=== PATIENT | female | born 1970 | race Caucasian/White ===

== ENCOUNTER → 2019-08-16 | Outpatient (CLI) | payer SELFPAY | PROVIDERS: Family Provider Family Medicine; Visit Provider Nurse Practitioner Psychiatric/Mental Health | DX: F33.2 Major depressive disorder, recurrent severe without psychotic features (principal); F41.1 Generalized anxiety disorder; F17.200 Nicotine dependence, unspecified, uncomplicated; F10.20 Alcohol dependence, uncomplicated ==

== ENCOUNTER → 2019-09-25 11:14 | Outpatient (BNVA) | payer MEDICAID, SELFPAY | PROVIDERS: Family Provider Family Medicine; Visit Provider Nurse Practitioner | DX: F33.2 Major depressive disorder, recurrent severe without psychotic features (principal); F17.210 Nicotine dependence, cigarettes, uncomplicated | CPT/HCPCS: 99214 ==

== ENCOUNTER → 2019-09-27 15:17 | Outpatient (BNVA) | payer MEDICAID, SELFPAY | PROVIDERS: Family Provider Family Medicine; Referring Provider Nurse Practitioner Family; Visit Provider Obstetrics & Gynecology | DX: N39.46 Mixed incontinence (principal) | CPT/HCPCS: 87086 ==

== ENCOUNTER → 2019-10-26 13:13 | Outpatient (BNVA) | payer MEDICAID, SELFPAY | PROVIDERS: Family Provider Family Medicine; PCP Nurse Practitioner Family; Visit Provider Nurse Practitioner | DX: F33.2 Major depressive disorder, recurrent severe without psychotic features (principal) | CPT/HCPCS: 99213 ==

== ENCOUNTER 2019-11-13 11:50 | Observation (INO) | payer MEDICAID, SELFPAY ==
[2019-11-09 11:50] VITALS: BMI 40.3
--- NOTE | 2019-11-09 11:55 | ECG_ITS ---
Measurements Intervals [place] Rate: 108 P: 21 TN: 133 QRS: 26 QRSD: 78 T: 1 QT: 320 QTc: 429 SINUS TACHYCARDIA NONSPECIFIC T-WAVE ABNORMALITY ABNORMAL RHYTHM ECG No previous ECG available for comparison Electronically Signed On 11-09-2019 12:51:22 CDT by Christiana Fried M.D. [email or web address]
[2019-11-09 12:16] LABS: Basophils % 0.3 %; Eosinophils # 0.1 10^3/uL (0.0-0.8); Eosinophils % 0.5 %; Hematocrit 44.7 % (37.0-47.0); Hemoglobin 14.4 g/dL (11.5-15.3); Lymphocytes # 2.6 10^3/uL (0.8-4.8); Lymphocytes % 23.5 %; Mean Corpuscular HGB Conc 32.2 g/dL (30.0-36.0); Mean Corpuscular Hemoglobin 27.2 pg (28.0-34.0); Mean Corpuscular Volume 84.5 fL (81-99); Mean Platelet Volume 10.1 fL (7.4-10.4); Monocytes # 0.7 10^3/uL (0.2-0.9); Monocytes % 6.2 %; Neutrophils # 7.7 10^3/uL (1.8-7.7); Nucleated Red Blood Cells % 0 %; Platelet Count 326 10^3/cmm (130-400); Red Blood Count 5.29 10^6/uL (4.1-5.3); White Blood Count 11.1 10^3/uL (4.0-10.0)
[2019-11-09 12:39] LABS: Add Urine Microscopic? NO
[2019-11-09 12:44] LABS: Anion Gap 17.3 (5-19); Blood Urea Nitrogen 10 mg/dL (6-20); Calcium 10.1 mg/dL (8.5-10.5); Carbon Dioxide 26 mmol/L (22-29); Chloride 100 mmol/L (98-107); Glomerular Filtration Rate 105.4 mL/min (90-130); Glucose 153 mg/dL (65-115); Osmolality Calculated 287 mOsm/kg (285-295); Potassium 4.3 mmol/L (3.5-5.1); Sodium 139 mmol/L (136-145)
--- NOTE | 2019-11-09 12:46 | ANES.PREANE2 ---
Pre-Anesthetic Assessment Pre-Anesthetic Assessment: Height/Weight: Height 1.68 m Weight 113.398 kg Preop Diagnosis: Cystocele, Urinary incontinence Proposed Procedure: Operation Date: 11/13/19 09:25 Proposed Procedures p Anterior Repair Anterior [id number]/ R32/ N81.2(Not Applicable) - Dameon Avina MD s Single incision suburethral sling(Not Applicable) - Dameon Avina MD s Cystoscopy(Not Applicable) - Dameon Avina MD Familial anesthetic complications: none Social: Social History: Tobacco Exam: Pre-Anes Outpt Exam: alert, oriented x 3, clear to auscultation bilaterally and regular rate & rhythm Airway: Cervical ROM: WNL MP: 2 Dentition: False Pulmonary: Pulmonary: Sleep apnea (cpap) CV/HEM: CV/HEM: HTN : : None reported Hepatic: Hepatic: None reported GI: GI: GERD Metabolic: Metabolic: DM, Morbid obesity and Thyroid Musc/skel: Musc/skel: None reported Neuropsych: Neuropsych: None reported Anesthetic Plan: ASA status: 2 Anesthesia: General Risk of > 500 ml blood loss (7ml/kg in children): No PFSH Anesthesia PFSH: Medical History (Updated 11/09/19 @ 11:48 by Roula Clemons RN) Alcohol dependence, in remission Diabetes type 2, controlled Gastroesophageal reflux Hypertension Hypothyroidism (acquired) Major depressive disorder, recurrent severe without psychotic features Nicotine dependence, cigarettes, uncomplicated Obesity Surgical History History of cholecystectomy History of dilation and curettage Status post breast reduction (~2009) Social History Smoking and tobacco status: current every day smoker cigarettes Smoking risk assessment/counseling performed?: Yes Tobacco counseling given: counseling >3 minutes Alcohol intake: former Year of sobriety/quit date alcohol: 1 Substance/Drug Use: never Female Reproductive History: Date of last menstrual period: 08/21/19 Data Anesthesia CBC & Chem 7: 11/09/19 12:01 11/09/19 12:01 Other Labs: Laboratory Results - last 48 hr 11/09/19 11/09/19 12:01 12:01 WBC 11.1 H RBC 5.29 Hgb 14.4 Hct 44.7 MCV 84.5 MCH 27.2 L MCHC 32.2 RDW 15.0 Plt Count 326 MPV 10.1 Neut % (Auto) 69.0 Lymph % (Auto) 23.5 Esmeralda % (Auto) 6.2 Eos % (Auto) 0.5 Baso % (Auto) 0.3 Neut # (Auto) 7.7 Lymph # (Auto) 2.6 Esmeralda # (Auto) 0.7 Eos # (Auto) 0.1 Baso # (Auto) 0.0 Nucleated RBC % (auto) 0 Nucleated RBCs # 0.0 Sodium 139 Potassium 4.3 Chloride 100 Carbon Dioxide 26 Anion Gap 17.3 BUN 10 Creatinine 0.6 GFR Calculation 105.4 Glucose 153 H Calculated Osmolality 287 Calcium 10.1 Cardiac Studies: No Data to Display
[2019-11-09 12:47] LABS: Bilirubin Urine Neg (NEGATIVE); Blood Urine Neg (Negative); Glucose Urine UA 4+ (Normal); Ketones Urine Negative (Negative); Leukocyte Esterase Urine Negative (Negative); Nitrate Urine Negative (Negative); OR HCG Qualitative Urine Negative (Negative); Protein Urine Neg (Negative); Urine Appearance Clear (CLEAR); Urine Color Straw (Yellow); Urobilinogen Urine Norm (Negative)
[2019-11-13] VITALS (14 sets, daily range): BP systolic 101–167; BP diastolic 69–95; PULSE 76–118; RESP 13–20; TEMP 36.3–37.3; O2SAT 96–100
[2019-11-13 08:15] LABS: Glucose Point of Care 157 mg/dL (70-110)
[2019-11-13] MEDS: ketorolac 30 mg/mL INJ IVP ×2 (08:15→14:17)
[2019-11-13] MEDS: sodium chloride 0.9% 1,000 ML 30 ML IV (08:15)
[2019-11-13] MEDS: phenazopyridine 100 mg Tablet 200 MG PO ×3 (08:15→20:23)
[2019-11-13] MEDS: scopolamine 1.5 Patch 1 PATCH TRANSDERMA (08:36)
--- NOTE | 2019-11-13 10:11 | W.PM.OPSUD ---
Surgery/Procedure H&P Update DATE OF PROCEDURE: November 13, 2019 DATE H&P PERFORMED: 11/09/19 H&P UPDATE INFORMATION: I have reviewed H&P completed within last 30 days, I have examined patient prior to procedure, No changes to prior documentation and H&[place] is in [facility] [place] indicated PREOP DIAGNOSIS: Cystocele, Urinary incontinence PLANNED PROCEDURE: Operation Date: 11/13/19 09:25 Proposed Procedures p Anterior Repair Anterior [id number]/ R32/ N81.2(Not Applicable) - Dameon Avina MD s Single incision suburethral sling(Not Applicable) - Dameon Avina MD s Cystoscopy(Not Applicable) - Dameon Avina MD
--- NOTE | 2019-11-13 10:18 | P.ANESUD_ITS ---
Pre-Anesthetic Update Pre-Anesthetic Assessment: Date of Surgery/Procedure: 11/13/19 Preop Celeste gnosis: Cystocele, Urinary incontinence Proposed Procedure: Operation Date: 11/13/19 09:25 Proposed Procedures p Anterior Repair Anterior [id number]/ R32/ N81.2(Not Applicable) - Dameon Avina MD s Single incision suburethral sling(Not Applicable) - Dameon Avina MD s Cystoscopy(Not Applicable) - Dameon Avina MD Any changes to Pre-Anesthetic Assessment?: No Last Intake: Intake Last Liquid Date 11/12/19 Last Liquid Time 20:30 Last Solid Date 11/12/19 Last Solid Time 20:30 Labs Last 48hrs: Laboratory Results - last 48 hr 11/13/19 08:11 POC Glucose 157 Vitals: Temperature 97.3 F L 11/13/19 07:59 Temperature Source Temporal Artery S can 11/13/19 07:59 Pulse Rate 88 11/13/19 07:59 Respiratory Rate 18 11/13/19 07:59 Blood Pressure 151/91 11/13/19 07:59 Blood Pressure Marilee n 111 11/13/19 07:59 Pulse Oximetry 98 11/13/19 07:59 Oxygen Delivery Me thod 11/13/19 07:59 Exam: Pre-Anes Outpt Exam: alert, oriented x 3, clear to auscultation bi laterally and regular rate & rhythm Cardiac Studies: No Data to Display
[2019-11-13] MEDS: vasopressin 20 unit/mL INJ INJECTION (10:58)
--- NOTE | 2019-11-13 11:33 | P.OP_ITS ---
Operative Report Date of procedure: November 13, 2019 Pre-op Diagnosis: Cystocele, Urinary incontinence Post-op Diagnosis: Cystocele, Urinary incontinence Procedure Done: Anterior colporrhaphy, Solyx Single incision suburethral sling, Cystoscopy Specimens removed/disposition: None Surgeon: Dameon Avina Breakfast Manager: AMINA Campbell Anesthesia: General Estimated blood loss (mL): 50 IV fluids (mL): 800 Complications: None Brief History: Patient is a 49-year-old white female 6, para 3-1-2-4 with an LMP of 07/2019 who is status post tubal ligation. She presented to the office with complaints of leaking urine. She reported that she had been having leaking problems for >1-year which has been worsening. She leaks urine with changes in position even without the feeling of needing to urinate. She leaks urine with coughing, sneezing, laughing, etc. She also reported urinary urgency symptoms with leaking. On exam, she was found to have a second-degree cystocele at rest with a third-degree cystocele with Valsalva. She had minimal uterine prolapse. She had hypermobility of the urethra. Treatment for her incontinence was discussed. Discussed that one treatment would not typically fix all of the problems. Questions were answered. She wished to proceed with surgical repair for the stress component of her incontinence. Procedure: Patient was taken to the operating room were general anesthesia was obtained. She was prepped and draped in usual sterile fashion dorsal supine position with legs in David style stirrups. Sequential compression boots were placed prior to starting the case. Exam under anesthesia was performed. She was noted to have third-degree cystocele. Mota catheter was inserted. Anterior vaginal wall was injected with dilute Pitressin solution. A midline incision was made along the anterior vaginal wall. The edges were grasp with Allis clamps and skin was dissected from the vesicle vaginal fascia using a combination of sharp and blunt dissection. This was extended from the mid urethra to the reflection of the skin at the cervix and to the lateral aspects of the anterior vaginal wall. Areas bleeding were brought under control using electrocautery. Due to the degree of cystocele, a 2 layer reapproximation of the bladder was recommended. Using 2-0 Vicryl suture, stitches were placed approximately a third of the distance between the midline and lateral aspect of the anterior wall. These were carried across to the contralateral side at approximately the same level in position. Multiple stitches were placed along the anterior wall. These were then tied which reduced the cystocele. A second layer was placed using 2-0 Vicryl suture, stitches were placed laterally into the corners of the vesicovaginal fascia and brought across to the contralateral side picking up the lateral corner. Multiple stitches were placed along the anterior wall. Once all stitches were placed these were tied in the midline essentially eliminating the cystocele. A solyx single incision suburethral sling was then placed. The sling was placed through at the mid urethral level and passed through the periurethral fascia and passed behind the pubic symphysis. This was repeated on the contralateral side in a similar fashion. The sling was brought up until it rested against the urethra. Mota catheter was removed and cystoscopy was performed. No bladder masses, suture material, or sling material was noted within the bladder. Both ureters were noted to be effluxing urine well. Bladder was drained and Mota catheter reinserted. Excess vaginal mucosa was excised. The vaginal mucosa was closed using 3-0 Vicryl suture in a running locking fashion. The vagina was packed with 1 inch Nu Gauze. Patient tolerated procedure well. Sponge, needle, and instrument counts were correct. DRAINS: Mota catheter FINDINGS: Third-degree cystocele noted. Normal-appearing bladder. POSTOPERATIVE STATUS: The patient was transferred to the recovery room in satisfactory condition.
[2019-11-13] MEDS: dextrose 5%-lactated ringers 1,000 ML 125 ML IV (12:24)
[2019-11-13] MEDS: TRAMadol 50 mg Tablet PO ×2 (13:36→20:00)
[2019-11-13] MEDS: morphine 4 mg/mL SDV 1 mL IVP ×2 (14:17→22:17)
[2019-11-13 16:47] LABS: Glucose Point of Care 173 mg/dL (70-110)
[2019-11-13] MEDS: docusate sodium 100 mg Capsule PO (19:59)
[2019-11-13] MEDS: trazodone 100 mg Tablet PO (20:24)
[2019-11-13 21:21] LABS: Glucose Point of Care 147 mg/dL (70-110)
[2019-11-14 03:30] VITALS: BP 107/68; PULSE 78; RESP 16; TEMP 36.8
[2019-11-14 06:16] LABS: Hematocrit 38.1 % (37.0-47.0); Hemoglobin 11.8 g/dL (11.5-15.3); Mean Corpuscular Hemoglobin 27.2 pg (28.0-34.0); Mean Corpuscular Volume 87.8 fL (81-99); Mean Platelet Volume 11.3 fL (7.4-10.4); Platelet Count 247 10^3/cmm (130-400); Red Blood Count 4.34 10^6/uL (4.1-5.3); Red Cell Distribution Width 15.2 % (12.1-15.1); White Blood Count 8.1 10^3/uL (4.0-10.0)
[2019-11-14] MEDS: TRAMadol 50 mg Tablet PO ×2 (06:51→12:07)
[2019-11-14] MEDS: docusate sodium 100 mg Capsule PO (09:34)
[2019-11-14] MEDS: NON-FORMULARY MEDICATION (Dapagliflozin [Farxiga] 5 MG) 5 EACH PO (09:34)
[2019-11-14] MEDS: phenazopyridine 100 mg Tablet 200 MG PO (09:34)
[2019-11-14] MEDS: NON-FORMULARY MEDICATION (Vortioxetine [Trintellix] 20 MG) 20 EACH PO (09:36)
[2019-11-14 10:00] VITALS: BP 120/85; PULSE 87; RESP 16; TEMP 36.9
[2019-11-14] MEDS: simethicone 80 mg Chew PO (10:10)
[2019-11-14] MEDS: alum-mag-hydroxide-sime 30 mL UDC PO (10:10)
[2019-11-14 12:48] LABS: Glucose Point of Care 139 mg/dL (70-110)
[2019-11-14 15:21] VITALS: BP 106/72; PULSE 82; RESP 16; TEMP 36.4; O2SAT 99
== END 2019-11-14 15:20 | disposition home or self-care (01) ==
LOC: OBGYN 11:56
PROVIDERS: Admitting Provider Obstetrics & Gynecology; Family Provider Family Medicine; PCP Nurse Practitioner Family; Visit Provider Obstetrics & Gynecology
PROC: 0JQC0ZZ Repair Pelvic Region Subcutaneous Tissue and Fascia, Open Approach (ICD-10-PCS; CPT 57240; principal; 2019-11-13 09:25)
PROC: (CPT 57288; 2019-11-13 09:25)
PROC: 0TJB8ZZ Inspection of Bladder, Via Natural or Artificial Opening Endoscopic (ICD-10-PCS; CPT 52000; 2019-11-13 09:25)
DX: N81.2 Incomplete uterovaginal prolapse (principal); R32 Unspecified urinary incontinence; E11.9 Type 2 diabetes mellitus without complications; Z79.84 Long term (current) use of oral hypoglycemic drugs; K21.9 Gastro-esophageal reflux disease without esophagitis; I10 Essential (primary) hypertension; F33.9 Major depressive disorder, recurrent, unspecified; F17.210 Nicotine dependence, cigarettes, uncomplicated; E66.01 Morbid (severe) obesity due to excess calories; Z68.41 Body mass index [BMI] 40.0-44.9, adult; Z82.49 Family history of ischemic heart disease and other diseases of the circulatory system; Z83.3 Family history of diabetes mellitus; G47.30 Sleep apnea, unspecified; Z80.0 Family history of malignant neoplasm of digestive organs
CPT/HCPCS: 57240; 57288; 12345; 36415; 36416; 51798; 80048; 81003; 82962; 84703; 85025; 85027; 93005; 96360; 96361; 96374; 96375; C1771; G0378; J0690; J1885; J2270; J2405; J2704; J3010; J3490; J7030

== ENCOUNTER → 2019-12-20 08:32 | Outpatient (BNVA) | payer MEDICAID, SELFPAY | PROVIDERS: Family Provider Family Medicine; PCP Nurse Practitioner Family; Visit Provider Nurse Practitioner | DX: F33.2 Major depressive disorder, recurrent severe without psychotic features (principal) | CPT/HCPCS: 99213 ==

== ENCOUNTER 2020-06-15 18:47 | Emergency (ER) | payer MEDICAID, SELFPAY ==
[2020-06-15 18:48] VITALS: BP 172/115; PULSE 120; RESP 15; TEMP 36.4; O2SAT 99; BMI 40.3
[2020-06-15 18:56] VITALS: BP 172/115; PULSE 120; RESP 30; TEMP 36.4; O2SAT 97
[2020-06-15] MEDS: diphenhydrAMINE 50 mg/mL SDV 1mL IM (19:01)
--- NOTE | 2020-06-15 19:08 | ED_ITS ---
HPI - Anxiety General: Chief Complaint: Anxiety Stated Complaint: ANXIETY; CHEM EXPOSURE TO ARMS Time Seen by Provider: 06/15/20 18:47 Source: patient and EMS Mode of arrival: EMS Limitations: no limitations History of Present Illness: HPI narrative: 49-year-old female states she has had a rash arms her last week or 2. She states she believes her is poisoning her with something and she believes this is a contact dermatitis. Patient denies any shortness of breath. She denies any worsening improving factors. She states the rash is pruritic in nature. Associated symptoms: Deny chest pain, chills, fever(s), headache(s), nausea or vomiting Review of Systems Const: Denies: fever(s), chills, body aches or change in appetite Eyes: Denies: blurry vision or eye discomfort ENMT: Denies: throat pain or dental pain Card: Denies: chest pain Resp: Denies: dyspnea GI: Denies: abdominal pain, nausea, vomiting or diarrhea : Denies: dysuria Musc: Denies: neck pain or back pain Skin/Breast: Reports: rash Neuro: Denies: headache(s) Psych: Denies: depression Marcelino/Lymph: Denies: easy bruising All/Imm: Denies: urticaria PFSH ED PFSH: Medical History Alcohol dependence, in remission Diabetes type 2, controlled Gastroesophageal reflux Hypertension Hypothyroidism (acquired) Major depressive disorder, recurrent severe without psychotic features Nicotine dependence, cigarettes, uncomplicated Obesity Surgical History History of cholecystectomy History of dilation and curettage Status post breast reduction (~2009) Family History Grandmother Colon cancer maternal Diabetes maternal and paternal Hypertension maternal and paternal Grandfather Diabetes maternal and paternal Hypertension maternal and paternal Father Diabetes Hypertension Mother Diabetes Hypertension Denies family history of Anesthesia complication Bleeding disorder Social History Smoking and tobacco status: current every day smoker cigarettes Smoking risk assessment/counseling performed?: Yes Tobacco counseling given: counseling >3 minutes Alcohol intake: former Year of sobriety/quit date alcohol: 1 Female Reproductive History: Date of last menstrual period: 08/21/19 Physical Exam Const: COMMON NORMALS: no acute distress, patient oriented x3 and healthy appearing HENMT: COMMON NORMALS: normocephalic and atraumatic HEAD & SCALP: normocephalic and atraumatic Eye: COMMON NORMALS: Equal, round and reactive pupils present and EOMs intact bilaterally PUPIL: Yes Equal, round and reactive pupils present Neck/C-Spine: COMMON NORMALS: full ROM and supple Chest: COMMONS NORMALS: normal inspection of the chest and normal palpation of entire chest wall Resp: COMMON NORMALS: normal respiratory effort, No retractions, No use of accessory muscles and clear to auscultation bilaterally AUSCULTATION: clear to auscultation bilaterally Cardio: COMMON NORMALS: regular rate, regular rhythm and No murmurs present (Cardio) RATE: regular rate RHYTHM: regular rhythm GI: COMMON NORMALS: Normal to inspection, nondistended, normoactive bowel sounds present, Soft to palpation, non-tender and no masses PALPATION: Yes Soft to palpation Extremity: COMMON NORMALS: normal to inspection and full ROM Neuro: COMMON NORMALS: patient oriented x3, moves all extremities and no focal motor deficits Psych: COMMON NORMALS: mental status grossly normal, Normal thought process present and cooperative THOUGHT PROCESS: Normal thought process present Skin: COMMON NORMALS: no wounds NARRATIVE SKIN EXAM: Slight rash to bilateral arms also appearing of dry skin Course Vital Signs: Vital signs: Vital Signs Temperature 97.6 F 06/15/20 18:56 Pulse Rate 120 H 06/15/20 18:56 Respiratory Rate 30 H 06/15/20 18:56 Blood Pressure 172/115 06/15/20 18:56 Pulse Oximetry 97 06/15/20 18:56 MDM - Anxiety MDM Narrative: Medical decision making narrative: Patient presents here with dry skin with possible rash to arms. Did give patient Benadryl and then she decided she wanted to leave. I was unable to speak to her before she left. She was well-appearing here and had no signs of serious anaphylaxis. Discharge Plan Discharge Patient Disposition: Left Against Medical Advice Clinical Impression: Rash Condition: Stable Prescriptions: No Action levothyroxine 25 mcg capsule 25 mcg PO QDAY RF: 0 trazodone 100 mg tablet 100 mg PO BEDTIME RF: 0 metformin 1,000 mg Tablet 1,000 mg PO BID RF: 0 metoprolol tartrate 25 mg Tablet 25 mg PO DAILY RF: 0 Farxiga 5 mg Tablet 5 mg PO DAILY RF: 0 Trintellix 20 mg Tablet 20 mg PO DAILY RF: 0 ibuprofen 800 mg Tablet 800 mg PO TID PRN (Reason: pain) Qty: 40 RF: 0 tramadol 50 mg Tablet 50 - 100 mg PO Q6H PRN (Reason: Moderate Pain) Qty: 20 RF: 0 Referrals: SHERIDAN ISAAC FNP [Primary Care Provider] - Deanne Cordova DO [Family Provider] - Coding Level of Care Code ED 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
== END 2020-06-15 19:05 | disposition left against medical advice (07) ==
LOC: ER 19:18
PROVIDERS: Emergency Provider Emergency Medicine
DX: R21 Rash and other nonspecific skin eruption (principal); Z53.21 Procedure and treatment not carried out due to patient leaving prior to being seen by health care provider; F17.210 Nicotine dependence, cigarettes, uncomplicated; E11.9 Type 2 diabetes mellitus without complications; I10 Essential (primary) hypertension
CPT/HCPCS: 12345; 96372; 96374; 96375; 99281; 99283; J1200

== ENCOUNTER 2020-06-17 04:52 | Emergency (ER) | payer MEDICAID, SELFPAY ==
[2020-06-17 04:53] VITALS: BP 168/110; PULSE 114; RESP 18; TEMP 37; O2SAT 98; BMI 37.1
--- NOTE | 2020-06-17 04:59 | ED_ITS ---
HPI - General Adult General: Chief complaint: General Medical Stated complaint: SWELLING Time Seen by Provider: 06/17/20 04:53 Source: patient and EMS Mode of arrival: EMS Limitations: no limitations History of Present Illness: HPI narrative: 49-year-old female who states that she was recently kicked out of her 's house. Patient states that she was at the police office tonight and states she has nowhere to stay currently. She states she has had swelling and itching to her arms and legs believes she has had a chemical substance on them. She denies any fever. She denies any pain. Denies any depression or suicidality. Patient is able answer all my questions here appropriately but does seem somewhat anxious. Associated symptoms: Reports rash; Deny chest pain, dyspnea, headache(s), nausea or vomiting Review of Systems Const: Denies: fever(s), chills, body aches or change in appetite Eyes: Denies: blurry vision or eye discomfort ENMT: Denies: throat pain or dental pain Card: Denies: chest pain Resp: Denies: dyspnea GI: Denies: abdominal pain, nausea, vomiting or diarrhea : Denies: dysuria Musc: Denies: neck pain or back pain Skin/Breast: Reports: rash Neuro: Denies: headache(s) Psych: Denies: depression Marcelino/Lymph: Denies: easy bruising All/Imm: Denies: urticaria PFSH ED PFSH: Medical History (Updated 06/17/20 @ 05:05 by Demetrius Antunez MD) Alcohol dependence, in remission Diabetes type 2, controlled Gastroesophageal reflux Hypertension Hypothyroidism (acquired) Major depressive disorder, recurrent severe without psychotic features Nicotine dependence, cigarettes, uncomplicated Obesity Surgical History History of cholecystectomy History of dilation and curettage Status post breast reduction (~2009) Family History Grandmother Colon cancer maternal Diabetes maternal and paternal Hypertension maternal and paternal Grandfather Diabetes maternal and paternal Hypertension maternal and paternal Father Diabetes Hypertension Mother Diabetes Hypertension Denies family history of Anesthesia complication Bleeding disorder Social History Smoking and tobacco status: current every day smoker cigarettes Smoking risk assessment/counseling performed?: Yes Tobacco counseling given: counseling >3 minutes Alcohol intake: former Year of sobriety/quit date alcohol: 1 Female Reproductive History: Date of last menstrual period: 08/21/19 Physical Exam Const: COMMON NORMALS: no acute distress, patient oriented x3 and healthy appearing HENMT: COMMON NORMALS: normocephalic and atraumatic HEAD & SCALP: normocephalic and atraumatic Eye: COMMON NORMALS: Equal, round and reactive pupils present and EOMs intact bilaterally PUPIL: Yes Equal, round and reactive pupils present Neck/C-Spine: COMMON NORMALS: full ROM and supple Chest: COMMONS NORMALS: normal inspection of the chest and normal palpation of entire chest wall Resp: COMMON NORMALS: normal respiratory effort, No retractions, No use of accessory muscles and clear to auscultation bilaterally AUSCULTATION: clear to auscultation bilaterally Cardio: COMMON NORMALS: regular rate, regular rhythm and No murmurs present (Cardio) RATE: regular rate RHYTHM: regular rhythm GI: COMMON NORMALS: Normal to inspection, nondistended, normoactive bowel sounds present, Soft to palpation, non-tender and no masses PALPATION: Yes Soft to palpation Extremity: COMMON NORMALS: normal to inspection and full ROM Neuro: COMMON NORMALS: patient oriented x3, moves all extremities and no focal motor deficits Psych: COMMON NORMALS: mental status grossly normal, Normal thought process pr esent and cooperative THOUGHT PROCESS: Normal thought process present Skin: NARRATIVE SKIN EXAM: Rash to arms and legs appearance of possible scabies or dry skin Course Vital Signs: Vital signs: Vital Signs Temperature 98.6 F 06/17/20 04:53 Pulse Rate 106 H 06/17/20 05:23 Respiratory Rate 18 06/17/20 04:53 Blood Pressure 179/109 06/17/20 05:23 Pulse Oximetry 96 06/17/20 05:23 MDM - General Adult MDM Narrative: Medical decision making narrative: Patient presents here with a rash that is likely scabies. Will place her on permethrin. Patient is well- appearing here and is stable for discharge and return if worsening. Discharge Plan Discharge Patient Disposition: Home Clinical Impression: Rash, Scabies Condition: Stable Prescriptions: New permethrin 5 % cream 1 applic TOPICAL Q14D Qty: 60 RF: 0 No Action levothyroxine 25 mcg capsule 25 mcg PO QDAY RF: 0 trazodone 100 mg tablet 100 mg PO BEDTIME RF: 0 metformin 1,000 mg Tablet 1,000 mg PO BID RF: 0 metoprolol tartrate 25 mg Tablet 25 mg PO DAILY RF: 0 Farxiga 5 mg Tablet 5 mg PO DAILY RF: 0 Trintellix 20 mg Tablet 20 mg PO DAILY RF: 0 ibuprofen 800 mg Tablet 800 mg PO TID PRN (Reason: pain) Qty: 40 RF: 0 tramadol 50 mg Tablet 50 - 100 mg PO Q6H PRN (Reason: Moderate Pain) Qty: 20 RF: 0 Discharge Orders: Discharge Order (Routine); Ordered 06/17/20 Ordered By: Demetrius Antunez Discharge Diet: Advance as tolerated Discharge Activity: Resume usual activity Patient Instructions: Scabies (ED) Discharge Date/Time: 06/17/20 05:23 Coding Level of Care Code ED Electrogalvanizing Machine Operator for Murali Fwyazmin Exam Comprehensive
[2020-06-17 05:23] VITALS: BP 179/109; PULSE 106; O2SAT 96
== END 2020-06-17 05:23 | disposition home or self-care (01) ==
LOC: ER 05:20
PROVIDERS: Emergency Provider Emergency Medicine
DX: B86 Scabies (principal); Z79.84 Long term (current) use of oral hypoglycemic drugs; E11.9 Type 2 diabetes mellitus without complications; I10 Essential (primary) hypertension; F17.210 Nicotine dependence, cigarettes, uncomplicated
CPT/HCPCS: 12345; 99282

== ENCOUNTER 2020-06-19 12:42 | Inpatient (IN) | payer MEDICAID, SELFPAY ==
[2020-06-19 12:43] VITALS: BP 116/76; PULSE 102; RESP 18; TEMP 36.9; O2SAT 99; BMI 38.7
--- NOTE | 2020-06-19 12:47 | XR_ITS ---
WS: [id number] Portable AP upright chest, 06/19/2020 Clinical Data: Weakness Comparison: Portable chest, 07/16/2018. Findings: No nodules, masses or effusions are seen. The heart is normal. The pulmonary vascularity is not increased. No pneumonia or pneumothorax is seen. XR/XR chest 1V portable 50800 Impression: Negative chest.
--- NOTE | 2020-06-19 12:47 | ECG_ITS ---
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 Measurements Intervals [place] Rate: 104 P: 27 NC: 130 QRS: 26 QRSD: 76 T: 12 QT: 343 QTc: 451 Interpretive Statements SINUS TACHYCARDIA No previous ECG available for comparison Electronically Signed On 06-19-2020 18:22:24 CDT by Mikel Mir M.D. [id number]
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
--- NOTE | 2020-06-19 12:59 | CT_ITS ---
WS: [id number] CT scan of the head, 06/19/2020 Clinical Data: Paresthesias, weakness Comparison: CT head, 07/16/2018. DLP: 781.[address] scans at [facility] use at least one of these dose optimization techniques: automat ed exposure control; mA and/or kV adjustment per patient size (includes targeted exams where dose is matched to clinical indication); or iterative reconstruction. Findings: The ventricular system is normal without shift. No recent infarct or hemorrhage is seen. There are no abnormal intracerebral masses. The cerebellum and brainstem are not remarkable. Bony windows of the skull and skull base show no fractures or erosions. The mastoid air cells, internet marketing director al auditory canals, sella turcica, intraorbital contents, and paranasal sinuses are unremarkable. CT/CT head wo con* [id number] Impression: Negative CT scan of the head
[2020-06-19 13:48] LABS: Basophils % 0.1 %; Eosinophils # 0.1 10^3/uL (0.0-0.8); Eosinophils % 0.9 %; Hematocrit 45.1 % (37.0-47.0); Hemoglobin 14.1 g/dL (11.5-15.3); Lymphocytes # 2.2 10^3/uL (0.8-4.8); Lymphocytes % 32.1 %; Mean Corpuscular HGB Conc 31.3 g/dL (30.0-36.0); Mean Corpuscular Hemoglobin 27.8 pg (28.0-34.0); Mean Platelet Volume 10.5 fL (7.4-10.4); Monocytes # 0.5 10^3/uL (0.2-0.9); Monocytes % 7.4 %; Neutrophils % 59.4 %; Nucleated Red Blood Cells % 0 %; Platelet Count 252 10^3/cmm (130-400); Red Blood Count 5.07 10^6/uL (4.1-5.3); Red Cell Distribution Width 13.4 % (12.1-15.1); White Blood Count 6.9 10^3/uL (4.0-10.0)
[2020-06-19 14:04] LABS: INR 0.91 (0.8-1.2)
[2020-06-19 14:05] LABS: Ketone (Acetest) Serum Negative (Negative)
[2020-06-19 14:09] LABS: Add Urine Microscopic? YES; Bilirubin Urine Neg (Negative); Blood Urine Neg (Negative); Glucose Urine UA Norm (Normal); Ketones Urine Negative (Negative); Leukocyte Esterase Urine Trace (Negative); Nitrate Urine Negative (Negative); Protein Urine Neg (Negative); Urine Appearance Clear (CLEAR); Urine Color Yellow (Yellow); Urobilinogen Urine Norm (Negative); pH Urine 6.5 (5-7)
[2020-06-19] MEDS: ondansetron 2 mg/ML SDV 2 mL 4 MG IVP (14:10)
[2020-06-19] MEDS: sodium chloride 0.9% 1,000 ML 999 ML IV (14:11)
[2020-06-19 14:14] LABS: Alanine Aminotransferase 39 U/L (0-33); Albumin Level 3.8 g/dL (3.5-5.2); Alkaline Phosphatase 100 IU/L (35-105); Anion Gap 15.2 (5-19); Aspartate Amino Transferase 43 U/L (0-32); Blood Urea Nitrogen 9 mg/dL (6-20); Calcium 9.5 mg/dL (8.5-10.5); Carbon Dioxide 27 mmol/L (22-29); Chloride 103 mmol/L (98-107); Creatine Phosphokinase 48 U/L (26-192); Globulin 2.9 g/dL (1.3-4.6); Glomerular Filtration Rate 130.1 mL/min (90-130); Glucose 124 mg/dL (65-115); Lipase 39 U/L (13-60); Magnesium 1.9 mg/dL (1.7-2.3); Osmolality Calculated 292 mOsm/kg (285-295); Potassium 4.2 mmol/L (3.5-5.1); Salicylate 15.4 mg/dL (3-10); Sodium 141 mmol/L (136-145); Total Bilirubin 0.2 mg/dL (0.15-1.2); Total Protein 6.7 g/dL (6.6-8.7)
[2020-06-19 14:17] LABS: Acetaminophen < 5.0 ug/mL (10-30); Alcohol Level < 10 mg/dL (0-10); Troponin(5th) Baseline 8 ng/L (0-10)
[2020-06-19 14:24] LABS: Add Urine Culture? No; Bacteria Urine 2+ /hpf
[2020-06-19 14:26] LABS: Amphetamines Screen Urine Positive (Negative); Barbiturates Screen Urine Negative (Negative); Benzodiazepines Screen Urine Negative (Negative); Cocaine Screen Urine Negative (Negative); Opiate Screen Urine Negative (Negative); PCP Screen Urine Negative (Negative); THC Screen Urine Negative (Negative)
--- NOTE | 2020-06-19 14:47 | ECG_ITS ---
[facility] Test Date: 2020-06-19 Pat Name: Shelley Galvan Department: Room: Gender: Female Patch Sander: : 1970 Requested By: Sindy Brambila Order Number: [id number] Navarro MD: Mikel Mir M.D. Measurements Intervals [place] Rate: 100 P: 27 DE: 142 QRS: 51 QRSD: 62 T: 39 QT: 334 QTc: 431 Interpretive Statements SINUS TACHYCARDIA MODERATE ST DEPRESSION [0.05+ mV ST DEPRESSION] Compared to ECG 06/19/2020 12:59:21 ST (T wave) deviation now present Electronically Signed On 06-19-2020 18:27:55 CDT by Mikel Mir M.D. [id number]
[2020-06-19] MEDS: cefTRIAXone 1,000 MG in sodium chloride 0.9% (plus) 50 ML 100 MG IV (14:57)
[2020-06-19] MEDS: LORazepam 2 mg/mL INJ 1 mL 1 MG IVP (14:59)
[2020-06-19 15:29] LABS: Troponin 5 2HR 7.15 ng/L (0-10)
[2020-06-19 15:45] LABS: Troponin 5 2HR Delta -0.85 ABS# (0-10)
[2020-06-19 15:45] LABS: Salicylate 16.2 mg/dL (3-10)
[2020-06-19 17:58] LABS: Salicylate 12.3 mg/dL (3-10)
--- NOTE | 2020-06-19 18:50 | PC.NURSE ---
patient resting quietly sitter outside room
[2020-06-19 19:00] VITALS: BP 118/79; PULSE 100; RESP 18; O2SAT 100
[2020-06-19 20:04] LABS: Troponin 5 6HR 6.43 ng/L (0-10)
[2020-06-19 20:23] LABS: Troponin 5 6HR Delta -1.57 ng/L (0-12)
[2020-06-19 22:00] VITALS: BP 121/64; PULSE 86; RESP 17; TEMP 37.1; O2SAT 98
[2020-06-19] MEDS: hyDROXYzine 25 mg Capsule 50 MG PO (23:12)
[2020-06-19] MEDS: trazodone 50 mg Tablet PO (23:13)
[2020-06-19] MEDS: nicotine 2 mg Gum BUCCAL (23:26)
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
--- NOTE | 2020-06-20 04:56 | PC.NURSE ---
INFLUENZA VACCINE 1 SINGE DOSE 0.5 ML GIVEN IM IN LEFT DELTOID PER PT REQUEST. PT EDUCATED ON MED GIVEN & VERBALIZED UNDERSTANDING. WILL CONT TO MONITOR INJECTION SITE FOR ANY REDNESS, SWELLING, OR IRRITATION. LOT [id number] EXP 02/25/21
[2020-06-20 05:30] VITALS: BP 112/70; PULSE 100; RESP 17; TEMP 36.9; O2SAT 96
[2020-06-20 06:43] LABS: Glucose Point of Care 105 mg/dL (70-110)
[2020-06-20] MEDS: permethrin cream 5% 60 gm 1 APPLIC TOPICAL (09:01)
[2020-06-20] MEDS: metoprolol tartrate 25 mg Tablet PO (09:01)
[2020-06-20] MEDS: levothyroxine 25 mcg Tablet PO (09:01)
[2020-06-20] MEDS: metformin 500 mg Tablet 1000 MG PO ×2 (09:01→16:50)
[2020-06-20 11:32] LABS: Glucose Point of Care 145 mg/dL (70-110)
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
[2020-06-20 14:00] VITALS: BP 130/78; PULSE 93; RESP 18; TEMP 36.4; O2SAT 95
--- NOTE | 2020-06-20 15:40 | PC.RESP ---
SMOKING CESSATION INFORMATION SENT TO PATIENT.
[2020-06-20 16:42] LABS: Glucose Point of Care 93 mg/dL (70-110)
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
[2020-06-20 20:11] LABS: Glucose Point of Care 127 mg/dL (70-110)
[2020-06-20] MEDS: ondansetron 4 MG Tablet PO (20:17)
[2020-06-20 20:26] VITALS: BP 138/85; PULSE 96; RESP 13; TEMP 37; O2SAT 96
--- NOTE | 2020-06-20 20:38 | NUR.SHIFT ---
Pt reports nausea this evening. Complains of paresthesia/neuopathy feeling in bilateral feet/hands. She is being treated for active scabies infestation. Upon assessment, pt is concerned about leaving the unit and becoming homeless. Reports increasing anxiety. will continue to monitor pt
--- NOTE | 2020-06-20 21:25 | PC.NURSE ---
2100 MEDS PT REFUSED 2100 TRAZODONE, STATES SHE HAS NOT TAKEN THAT MEDICATION IN YEARS. ZOFRAN 4MG PO ADMINISTERED FOR PT C/O NAUSEA.
[2020-06-20] MEDS: hyDROXYzine 25 mg Capsule 50 MG PO (22:57)
[2020-06-20] MEDS: nicotine 2 mg Gum BUCCAL (22:58)
[2020-06-21 06:00] VITALS: BP 137/82; PULSE 109; RESP 15; TEMP 37.2; O2SAT 97
[2020-06-21 07:05] LABS: Glucose Point of Care 95 mg/dL (70-110)
[2020-06-21] MEDS: metformin 500 mg Tablet 1000 MG PO ×2 (08:03→17:31)
[2020-06-21] MEDS: metoprolol tartrate 25 mg Tablet PO (08:03)
[2020-06-21] MEDS: levothyroxine 25 mcg Tablet PO (08:03)
[2020-06-21 10:43] LABS: Glucose Point of Care 94 mg/dL (70-110)
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
[2020-06-21 14:00] VITALS: BP 136/83; PULSE 92; RESP 18; TEMP 36.3
[2020-06-21] MEDS: hyDROXYzine 25 mg Capsule 50 MG PO (15:29)
--- NOTE | 2020-06-21 15:29 | PC.NURSE ---
Addendum entered by Mary Jane Myers LPN 06/21/20 17:31: prn med effective no further c/o anxiety Original Note: PRN VISTARIL VISTARIL 50 MG GIVEN PO PER PT C/O ANXIETY. PT UPSET AFTER PHONE CALL, TEARFUL. WILL CONT TO MONITOR
[2020-06-21 17:07] LABS: Glucose Point of Care 99 mg/dL (70-110)
[2020-06-21 20:24] LABS: Glucose Point of Care 126 mg/dL (70-110)
[2020-06-21 21:57] VITALS: BP 172/85; PULSE 113; RESP 18; TEMP 36.8; O2SAT 94
[2020-06-22 06:00] VITALS: BP 144/75; PULSE 88; RESP 17; TEMP 36.7; O2SAT 97
[2020-06-22 07:09] LABS: Glucose Point of Care 103 mg/dL (70-110)
[2020-06-22] MEDS: paliperidone ER 6 mg Tablet PO (08:23)
[2020-06-22] MEDS: metformin 500 mg Tablet 1000 MG PO ×2 (08:23→16:52)
[2020-06-22] MEDS: hyDROXYzine 25 mg Capsule 50 MG PO ×2 (08:23→20:40)
[2020-06-22] MEDS: levothyroxine 25 mcg Tablet PO (08:23)
[2020-06-22] MEDS: metoprolol tartrate 25 mg Tablet PO (08:23)
[2020-06-22 11:01] LABS: Glucose Point of Care 170 mg/dL (70-110)
[2020-06-22] MEDS: acetaminophen 325 mg Tablet 650 MG PO (11:33)
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
[2020-06-22 14:00] VITALS: BP 117/75; PULSE 89; RESP 18; TEMP 36.9
[2020-06-22] MEDS: TRAMadol 50 mg Tablet 100 MG PO ×2 (14:39→20:44)
[2020-06-22] MEDS: nicotine 2 mg Gum BUCCAL (16:10)
[2020-06-22 16:33] LABS: Glucose Point of Care 153 mg/dL (70-110)
[2020-06-22 19:48] LABS: Glucose Point of Care 175 mg/dL (70-110)
[2020-06-22 19:54] VITALS: BP 118/84; PULSE 108; RESP 20; TEMP 36.8; O2SAT 96
[2020-06-23 06:00] VITALS: BP 93/56; PULSE 92; RESP 18; TEMP 36.8; O2SAT 98
[2020-06-23 06:38] LABS: Glucose Point of Care 96 mg/dL (70-110)
[2020-06-23] MEDS: TRAMadol 50 mg Tablet 100 MG PO ×2 (08:18→14:49)
[2020-06-23] MEDS: levothyroxine 25 mcg Tablet PO (08:18)
[2020-06-23] MEDS: metoprolol tartrate 25 mg Tablet PO (08:18)
[2020-06-23] MEDS: metformin 500 mg Tablet 1000 MG PO ×2 (08:18→16:44)
[2020-06-23] MEDS: paliperidone ER 6 mg Tablet PO (08:18)
[2020-06-23] MEDS: nicotine 21 mg Patch 1 PATCH TRANSDERMA (09:11)
[2020-06-23 11:30] LABS: Glucose Point of Care 105 mg/dL (70-110)
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
[2020-06-23] MEDS: polyethylene glycol 3350 Pkt 17 gm PO (12:25)
[2020-06-23] MEDS: benztropine 1 mg Tablet PO ×2 (12:25→20:33)
[2020-06-23 13:54] VITALS: BP 124/90; PULSE 99; RESP 21; TEMP 36.4; O2SAT 98
[2020-06-23 16:48] LABS: Glucose Point of Care 137 mg/dL (70-110)
[2020-06-23 19:35] LABS: Glucose Point of Care 103 mg/dL (70-110)
[2020-06-23 19:56] VITALS: BP 104/70; PULSE 91; RESP 17; TEMP 36.4; O2SAT 97
[2020-06-23] MEDS: TRAMadol 50 mg Tablet PO (20:33)
[2020-06-23] MEDS: hyDROXYzine 25 mg Capsule 50 MG PO (20:33)
[2020-06-24 06:00] VITALS: BP 106/70; PULSE 93; RESP 17; TEMP 36.1; O2SAT 95
[2020-06-24 07:00] LABS: Glucose Point of Care 107 mg/dL (70-110)
[2020-06-24] MEDS: polyethylene glycol 3350 Pkt 17 gm PO (08:03)
[2020-06-24] MEDS: benztropine 1 mg Tablet PO (08:06)
[2020-06-24] MEDS: paliperidone ER 6 mg Tablet PO (08:06)
[2020-06-24] MEDS: metformin 500 mg Tablet 1000 MG PO (08:06)
[2020-06-24] MEDS: levothyroxine 25 mcg Tablet PO (08:07)
[2020-06-24] MEDS: metoprolol tartrate 25 mg Tablet PO (08:07)
[2020-06-24 09:51] VITALS: BP 106/70; PULSE 93; RESP 17; TEMP 36.1; O2SAT 95
[2020-06-24 11:25] LABS: Glucose Point of Care 111 mg/dL (70-110)
[2020-06-24] MEDS: acetaminophen 325 mg Tablet 650 MG PO (12:05)
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
== END 2020-06-24 15:08 | disposition home or self-care (01) | DRG 885 ==
LOC: ER 16:11 → NP 06-20 06:06
PROVIDERS: Emergency Medicine; Admitting Provider Psychiatry & Neurology Psychiatry; Visit Provider Psychiatry & Neurology Psychiatry
DX: F23 Brief psychotic disorder (principal); F33.2 Major depressive disorder, recurrent severe without psychotic features; I10 Essential (primary) hypertension; E11.9 Type 2 diabetes mellitus without complications; Z86.19 Personal history of other infectious and parasitic diseases; Z81.8 Family history of other mental and behavioral disorders; K21.9 Gastro-esophageal reflux disease without esophagitis; F17.210 Nicotine dependence, cigarettes, uncomplicated; F10.21 Alcohol dependence, in remission; E03.9 Hypothyroidism, unspecified; E66.9 Obesity, unspecified; Z68.39 Body mass index [BMI] 39.0-39.9, adult; B86 Scabies; F41.9 Anxiety disorder, unspecified; Z79.84 Long term (current) use of oral hypoglycemic drugs; F15.90 Other stimulant use, unspecified, uncomplicated
CPT/HCPCS: 12345; 36415; 36416; 70450; 71045; 80053; 80306; 80307; 81001; 82009; 82550; 82962; 83605; 83690; 83735; 84484; 85025; 85610; 87077; 87086; 87186; 90471; 90686; 93005; 96372; 96375; 99284; J0696; J1815; J2060; J2405; J7030; Q0162

== ENCOUNTER 2020-06-28 12:12 | Emergency (ER) | payer MEDICAID, SELFPAY ==
[2020-06-28 12:19] VITALS: PULSE 94; RESP 14; TEMP 37.2; O2SAT 97; BMI 33.9
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
[2020-06-28 13:05] VITALS: RESP 18
[2020-06-28 13:09] LABS: Basophils % 0.3 %; Eosinophils # 0.1 10^3/uL (0.0-0.8); Eosinophils % 0.7 %; Hematocrit 42.1 % (37.0-47.0); Hemoglobin 13.5 g/dL (11.5-15.3); Lymphocytes # 2.1 10^3/uL (0.8-4.8); Lymphocytes % 24.2 %; Mean Corpuscular HGB Conc 32.1 g/dL (30.0-36.0); Mean Corpuscular Hemoglobin 27.9 pg (28.0-34.0); Mean Platelet Volume 10.4 fL (7.4-10.4); Monocytes # 0.6 10^3/uL (0.2-0.9); Monocytes % 6.2 %; Neutrophils # 6.04 10^3/uL (1.8-7.7); Neutrophils % 68.4 %; Nucleated Red Blood Cells % 0 %; Platelet Count 313 10^3/cmm (130-400); Red Blood Count 4.84 10^6/uL (4.1-5.3); Red Cell Distribution Width 13.2 % (12.1-15.1); White Blood Count 8.8 10^3/uL (4.0-10.0)
[2020-06-28 13:11] LABS: Add Urine Microscopic? NO
[2020-06-28 13:18] LABS: Bilirubin Urine Neg (Negative); Blood Urine Neg (Negative); Glucose Urine UA 4+ (Normal); HCG Qualitative Urine. Negative (Negative); Ketones Urine 1+ (Negative); Leukocyte Esterase Urine Negative (Negative); Nitrate Urine Negative (Negative); Protein Urine Neg (Negative); Urine Appearance Clear (CLEAR); Urine Color Yellow (Yellow); Urobilinogen Urine 1 mg/dL (Negative); pH Urine 5 (5-7)
[2020-06-28 13:21] LABS: Amphetamines Screen Urine Negative (Negative); Barbiturates Screen Urine Negative (Negative); Benzodiazepines Screen Urine Negative (Negative); Cocaine Screen Urine Negative (Negative); Opiate Screen Urine Negative (Negative); PCP Screen Urine Negative (Negative); THC Screen Urine Negative (Negative)
[2020-06-28 13:30] LABS: Alanine Aminotransferase 49 U/L (0-33); Alkaline Phosphatase 121 IU/L (35-105); Anion Gap 14.3 (5-19); Aspartate Amino Transferase 37 U/L (0-32); Blood Urea Nitrogen 13 mg/dL (6-20); Calcium 9.3 mg/dL (8.5-10.5); Carbon Dioxide 27 mmol/L (22-29); Chloride 104 mmol/L (98-107); Globulin 2.8 g/dL (1.3-4.6); Glomerular Filtration Rate 88.2 mL/min (90-130); Glucose 142 mg/dL (65-115); Osmolality Calculated 295 mOsm/kg (285-295); Potassium 4.3 mmol/L (3.5-5.1); Sodium 141 mmol/L (136-145); Total Bilirubin 0.3 mg/dL (0.15-1.2); Total Protein 6.8 g/dL (6.6-8.7)
[2020-06-28 13:33] LABS: Acetaminophen < 5.0 ug/mL (10-30); Alcohol Level < 10 mg/dL (0-10); Salicylate < 0.3 mg/dL (3-10)
[2020-06-28 16:05] VITALS: RESP 18
[2020-06-28 16:08] VITALS: RESP 18
== END 2020-06-28 16:09 | disposition home or self-care (01) ==
PROVIDERS: Emergency Provider Family Medicine
DX: E11.40 Type 2 diabetes mellitus with diabetic neuropathy, unspecified (principal); F41.9 Anxiety disorder, unspecified; F45.8 Other somatoform disorders; I10 Essential (primary) hypertension; Z79.84 Long term (current) use of oral hypoglycemic drugs; F17.210 Nicotine dependence, cigarettes, uncomplicated
CPT/HCPCS: 12345; 72040; 72100; 80053; 80306; 80307; 81003; 81025; 85025; 87506; 99284

== ENCOUNTER 2020-06-29 11:29 | Inpatient (IN) | payer MEDICAID, SELFPAY ==
[2020-06-29 11:51] VITALS: BP 157/91; PULSE 97; RESP 14; TEMP 36.4; O2SAT 98; BMI 33.9
--- NOTE | 2020-06-29 12:14 | ED_ITS ---
Documented by User: LUCIA Murguia 06/29/20 17:46 HPI - General Adult General: Chief complaint: Nausea/Vomiting/Diarrhea Stated complaint: says she's throwing up bugs Time Seen by Provider: 06/29/20 12:10 History of Present Illness: HPI narrative: Patient is a 49-year-old female who comes to the ED with delusions. Patient has a past medical history of acute psychosis, major depressive disorder and anxiety. Patient was recently released from [facility] on . patient believes that her ex- is purposefully infecting her with parasites and other bugs to try to kill her. She says she sees these bugs are in her vagina and anus. She also reports coughing them up as well. She showed me an example of 1 of these bugs she coughed up and look like a speck of food. She is very anxious and concerned that nobody believes her that these bugs/parasites are going to kill her. Patient was seen here yesterday with similar complaint and stool parasite test performed and it was negative. Associated symptoms: Deny chest pain, dyspnea, headache(s), nausea, rash, palpitations or vomiting Review of Systems Const: Denies: fever(s), chills or fatigue Eyes: Denies: change in vision or eye discomfort ENMT: Denies: throat pain, odynophagia, nasal discharge or nasal congestion Card: Denies: chest pain, palpitations, edema, swelling of feet/ankles, dyspnea on exertion or orthopnea Resp: Denies: dyspnea, productive cough or non-productive cough GI: Denies: abdominal pain, nausea, vomiting, diarrhea, constipation or hematochezia : Denies: flank pain, dysuria or hematuria Musc: Denies: neck pain, back pain or extremity swelling Skin/Breast: Denies: rash or new lesions Neuro: Denies: headache(s), numbness in extremities or weakness in extremities Psych: Reports: anxiety, paranoia and visual hallucinations (believes she is seeing bugs in her phlegm, stool and urine. ); Denies: suicidal ideation or homicidal ideation [facility] ED PFSH: Medical History Alcohol dependence, in remission Anxiety Diabetes type 2, controlled Gastroesophageal reflux Hypertension Hypothyroidism (acquired) Major depressive disorder, recurrent severe without psychotic features Nicotine dependence, cigarettes, uncomplicated Obesity Surgical History History of cholecystectomy History of dilation and curettage Status post breast reduction (~2009) Family History Grandmother Colon cancer maternal Diabetes maternal and paternal Hypertension maternal and paternal Grandfather Diabetes maternal and paternal Hypertension maternal and paternal Father Diabetes Hypertension Mother Diabetes Hypertension Denies family history of Anesthesia complication Bleeding disorder Social History Smoking and tobacco status: current every day smoker cigarettes Smoking risk assessment/counseling performed?: Yes Tobacco counseling given: counseling >3 minutes Alcohol intake: former Year of sobriety/quit date alcohol: 1 Female Reproductive History: Date of last menstrual period: 08/21/19 Physical Exam Const: COMMON NORMALS: no acute distress, patient oriented x3 and alert GENERAL APPEARANCE: cooperative and anxious HENMT: COMMON NORMALS: normocephalic HEAD & SCALP: normocephalic MOUTH: Normal oral and palatal mucosa present THROAT: posterior oropharynx normal and uvula midline Neck/C-Spine: COMMON NORMALS: supple GENERAL: Yes normal visual inspection Resp: COMMON NORMALS: normal respiratory effort, No retractions, No use of accessory muscles and clear to auscultation bilaterally AUSCULTATION: clear to auscultation bilaterally Cardio: COMMON NORMALS: regular rate, regular rhythm, S1 normal heart sound present, S2 normal heart sound present, No gallops present (Cardio), No clicks present (Cardio), No murmurs present (Cardio) and Peripheral pulses 2+ throughout RATE: regular rate RHYTHM: regular rhythm HEART SOUNDS: S1 normal heart sound present and S2 normal heart sound present PERIPHERAL PULSES: Peripheral pulses 2+ throughout GI: COMMON NORMALS: Normal to inspection, nondistended, normoactive bowel sounds present, Soft to palpation, non-tender and no masses PALPATION: Yes Soft to palpation : COMMON NORMALS: Yes no CVA tenderness BLADDER/KIDNEY EXAM: Yes no CVA tenderness Back/Pelvis: COMMON NORMALS: no CVA tenderness Extremity: COMMON NORMALS: normal to inspection Neuro: COMMON NORMALS: patient oriented x3 and moves all extremities SENSORIUM/ORIENTATION: Yes alert Psych: COMMON NORMALS: speech normal APPEARANCE: Yes grossly normal ATTITUDE: Yes agitated ACTIVITY/MOTOR BEHAVIOR: Yes appropriate eye contact SPEECH: Yes normal speech MOOD & AFFECT: Yes anxious and Yes fearful (very worried is trying to kill her.) THOUGHT PROCESS: Illogical thought process present THOUGHT CONTENT: No Suicidality present, No Homicidality present and Yes delusions Delusional thought content details: paranoid (Believes she has bugs or parasites inside her ear that were put there by her ex-. ) and somatic (Believes she has bugs or parasites inside her ear that were put there by her ex-. She thinks they are causing her symptoms.) ATTENTION/CONCENTRATION: Yes attention grossly intact and Yes concentration grossly intact MEMORY/COGNITION: Yes memory grossly intact and Yes cognition grossly intact INSIGHT: Limited insight present (Psych) JUDGEMENT: Limited judgement present (Psych) Skin: GENERAL SKIN EXAM: dry skin Course Consultations: Consultation #1: I contacted Dr. Vital about patient case and was going to have him do a teleconference. Amanuel is very familiar with patient and her case. He recommended that since she is in here 2 days in a row for same delusional complaint he recommends her being admitted. If she does not want to be admitted to the [facility] you he thought we should file a 96-hour hold. Consultation #2: I contacted Dr. Ya and told him about patient case and that she has been put on a 96-hour hold. Dr. Ya accepts admission into the NPU. Vital Signs: Vital signs: Vital Signs Temperature 97.9 F 06/29/20 22:00 Pulse Rate 72 06/29/20 22:00 Respiratory Rate 16 06/29/20 22:00 Blood Pressure 138/92 06/29/20 22:00 Pulse Oximetry 98 06/29/20 22:00 MDM - General Adult MDM Narrative: Medical decision making narrative: Patient is a 49-year-old female comes to the ED with concerns that she has parasites or bugs in her that were placed there by her ex-. She was just recently in the NPU on June 19. PMH of acute psychosis, major depressive and anxiety. Patient appears very anxious and worried. I contacted Dr. Vital about patient case and he was familiar with patient and stated that if she has been to the ED twice for this complaint she needs to be admitted to the NPU. Patient did not want to be admitted to the NPU, so I put her on a 96-hour hold. I contacted Dr. Ya and he accepted her for admission into the NPU. Dr. Nichols placed the admitting orders. Lab Data: Attestation: I reviewed the patient's lab results. Labs: Lab Results 06/29/20 06/29/20 06/29/20 Range/Units 13:11 13:11 13:25 WBC 8.8 (4.0-10.0) 10^3/ uL RBC 4.54 (4.1-5.3) 10^6/u L Hgb 12.7 (11.5-15.3) g/dL Hct 39.6 (37.0-47.0) % MCV 87.2 (81-99) fL MCH 28.0 (28.0-34.0) pg MCHC 32.1 (30.0-36.0) g/dL RDW 13.3 (12.1-15.1) % Plt Count 300 (130-400) 10^3/c mm MPV 10.3 (7.4-10.4) fL Neut % (Auto) 62.4 % Lymph % (Auto) 30.1 % [place] % (Auto) 6.3 % Eos % (Auto) 0.7 % Baso % (Auto) 0.2 % Neut # (Auto) 5.46 (1.8-7.7) 10^3/u L Lymph # (Auto) 2.6 (0.8-4.8) 10^3/u L [place] # (Auto) 0.6 (0.2-0.9) 10^3/u L Eos # (Auto) 0.1 (0.0-0.8) 10^3/u L Baso # (Auto) 0.0 (0.0-0.1) 10^3/u L Nucleated RBC % (a uto) 0 % Nucleated RBCs # 0.0 /100WBC Sodium (136-145) mmol/L Potassium (3.5-5.1) mmol/L Chloride (98-107) mmol/L Carbon Dioxide (22-29) mmol/L Anion Gap (5-19) BUN (6-20) mg/dL Creatinine (0.5-0.9) mg/dL GFR Calculation (90-130) mL/min Glucose (65-115) mg/dL Calculated Osmolal ity (285-295) mOsm/k g Calcium (8.5-10.5) mg/dL Total Bilirubin (0.15-1.2) mg/dL AST (0-32) U/L ALT (0-33) U/L Alkaline Phosphata se (35-105) IU/L Total Protein (6.6-8.7) g/dL Albumin (3.5-5.2) g/dL Globulin (1.3-4.6) g/dL Urine Color Yellow (Yellow) Urine Appearance Clear (CLEAR) Urine pH 5 (5-7) Ur Specific Gravit y 1.020 (1.005-1.030) Urine Protein Neg (Negative) Urine Glucose (UA) 4+ H (Normal) Urine Ketones Negative (Negative) Urine Blood Neg (Negative) Urine Nitrate Negative (Negative) Urine Bilirubin Neg (Negative) Urine Urobilinogen Neg (Negative) mg/dL Ur Leukocyte Lorraine ase Negative (Negative) Urine RBC None (0-2) /hpf Urine WBC 0-4 H (0-5) /hpf Ur Squamous Epith Cells 5-10 H (0-5) /hpf Amorphous Sediment Not Reportable Urine Bacteria Trace (NONE) /hpf Salicylates (3-10) mg/dL Urine Opiates Scre en Negative (Negative) ng/mL Acetaminophen (10-30) ug/mL Ur Barbiturates Sc reen Negative (Negative) ng/mL Ur Phencyclidine S crn Negative (Negative) ng/mL Ur Amphetamines Sc reen Negative (Negative) ng/mL U Benzodiazepines Scrn Negative (Negative) ng/mL Urine Cocaine Scre en Negative (Negative) ng/mL U Marijuana (THC) Screen Negative (Negative) ng/mL Ethyl Alcohol (0-10) mg/dL 06/29/20 Range/Units 13:25 WBC (4.0-10.0) 10^3/ uL RBC (4.1-5.3) 10^6/u L Hgb (11.5-15.3) g/dL Hct (37.0-47.0) % MCV (81-99) fL MCH (28.0-34.0) pg MCHC (30.0-36.0) g/dL RDW (12.1-15.1) % Plt Count (130-400) 10^3/c mm MPV (7.4-10.4) fL Neut % (Auto) % Lymph % (Auto) % [place] % (Auto) % Eos % (Auto) % Baso % (Auto) % Neut # (Auto) (1.8-7.7) 10^3/u L Lymph # (Auto) (0.8-4.8) 10^3/u L [place] # (Auto) (0.2-0.9) 10^3/u L Eos # (Auto) (0.0-0.8) 10^3/u L Baso # (Auto) (0.0-0.1) 10^3/u L Nucleated RBC % (a uto) % Nucleated RBCs # /100WBC Sodium 141 (136-145) mmol/L Potassium 3.9 (3.5-5.1) mmol/L Chloride 105 (98-107) mmol/L Carbon Dioxide 26 (22-29) mmol/L Anion Gap 13.9 (5-19) BUN 12 (6-20) mg/dL Creatinine 0.6 (0.5-0.9) mg/dL GFR Calculation 105.4 (90-130) mL/min Glucose 127 H (65-115) mg/dL Calculated Osmolal ity 293 (285-295) mOsm/k g Calcium 9.4 (8.5-10.5) mg/dL Total Bilirubin 0.2 (0.15-1.2) mg/dL AST 30 (0-32) U/L ALT 43 H (0-33) U/L Alkaline Phosphata se 139 H (35-105) IU/L Total Protein 6.9 (6.6-8.7) g/dL Albumin 3.9 (3.5-5.2) g/dL Globulin 3.0 (1.3-4.6) g/dL Urine Color (Yellow) Urine Appearance (CLEAR) Urine pH (5-7) Ur Specific Gravit y (1.005-1.030) Urine Protein (Negative) Urine Glucose (UA) (Normal) Urine Ketones (Negative) Urine Blood (Negative) Urine Nitrate (Negative) Urine Bilirubin (Negative) Urine Urobilinogen (Negative) mg/dL Ur Leukocyte Lorraine ase (Negative) Urine RBC (0-2) /hpf Urine WBC (0-5) /hpf Ur Squamous Epith Cells (0-5) /hpf Amorphous Sediment Urine Bacteria (NONE) /hpf Salicylates < 0.3 L (3-10) mg/dL Urine Opiates Scre en (Negative) ng/mL Acetaminophen < 5.0 L (10-30) ug/mL Ur Barbiturates Sc reen (Negative) ng/mL Ur Phencyclidine S crn (Negative) ng/mL Ur Amphetamines Sc reen (Negative) ng/mL U Benzodiazepines Scrn (Negative) ng/mL Urine Cocaine Scre en (Negative) ng/mL U Marijuana (THC) Screen (Negative) ng/mL Ethyl Alcohol < 10 (0-10) mg/dL Discharge Plan Discharge Patient Disposition: Admitted As Inpatient Admit Provider: Felton Ya Clinical Impression: Acute psychosis, Delusional disorder Condition: Stable Interventions: ED Discharge Assessment Last Done: 06/29/20 14:38 ED Charges Last Done: 06/29/20 14:38 Discharge Date/Time: 06/29/20 14:39 Coding Level of Care Code ED Head Char Filter Tank Tender for Chg Fwd Exam Comprehensive Documented by User: Stefania Nichols MD, [facility] [place] 06/30/20 00:42 HPI - General Adult General: Chief complaint: Nausea/Vomiting/Diarrhea Stated complaint: says she's throwing up bugs Time Seen by Provider: 06/29/20 12:10 PFSH ED PFSH: Medical History Alcohol dependence, in remission Anxiety Diabetes type 2, controlled Gastroesophageal reflux Hypertension Hypothyroidism (acquired) Major depressive disorder, recurrent severe without psychotic features Nicotine dependence, cigarettes, uncomplicated Obesity Surgical History History of cholecystectomy History of dilation and curettage Status post breast reduction (~2009) Family History Grandmother Colon cancer maternal Diabetes maternal and paternal Hypertension maternal and paternal Grandfather Diabetes maternal and paternal Hypertension maternal and paternal Father Diabetes Hypertension Mother Diabetes Hypertension Denies family history of Anesthesia complication Bleeding disorder Social History Smoking and tobacco status: current every day smoker cigarettes Smoking risk assessment/counseling performed?: Yes Tobacco counseling given: counseling >3 minutes Alcohol intake: former Year of sobriety/quit date alcohol: 1 Course Vital Signs: Vital signs: Vital Signs Temperature 97.9 F 06/29/20 22:00 Pulse Rate 72 06/29/20 22:00 Respiratory Rate 16 06/29/20 22:00 Blood Pressure 138/92 06/29/20 22:00 Pulse Oximetry 98 06/29/20 22:00 MDM - General Adult MDM Narrative: Medical decision making narrative: See the midlevel provider's notes for history and examination. I also examined this patient. This patient who is with acute pychosis. She is delusional and thinks that her is poisoning her and also that she has bugs all over her. Because she appears to be uncontrolled with ED visits on 2 consecutive days, the pyschiatrist advised that she be admitted to the [facility] for further evaluation and management Lab Data: Labs: Lab Results 06/29/20 06/29/20 06/29/20 Range/Units 13:11 13:11 13:25 WBC 8.8 (4.0-10.0) 10^3/ uL RBC 4.54 (4.1-5.3) 10^6/u L Hgb 12.7 (11.5-15.3) g/dL Hct 39.6 (37.0-47.0) % MCV 87.2 (81-99) fL MCH 28.0 (28.0-34.0) pg MCHC 32.1 (30.0-36.0) g/dL RDW 13.3 (12.1-15.1) % Plt Count 300 (130-400) 10^3/c mm MPV 10.3 (7.4-10.4) fL Neut % (Auto) 62.4 % Lymph % (Auto) 30.1 % [place] % (Auto) 6.3 % Eos % (Auto) 0.7 % Baso % (Auto) 0.2 % Neut # (Auto) 5.46 (1.8-7.7) 10^3/u L Lymph # (Auto) 2.6 (0.8-4.8) 10^3/u L [place] # (Auto) 0.6 (0.2-0.9) 10^3/u L Eos # (Auto) 0.1 (0.0-0.8) 10^3/u L Baso # (Auto) 0.0 (0.0-0.1) 10^3/u L Nucleated RBC % (a uto) 0 % Nucleated RBCs # 0.0 /100WBC Sodium (136-145) mmol/L Potassium (3.5-5.1) mmol/L Chloride (98-107) mmol/L Carbon Dioxide (22-29) mmol/L Anion Gap (5-19) BUN (6-20) mg/dL Creatinine (0.5-0.9) mg/dL GFR Calculation (90-130) mL/min Glucose (65-115) mg/dL Calculated Osmolal ity (285-295) mOsm/k g Calcium (8.5-10.5) mg/dL Total Bilirubin (0.15-1.2) mg/dL AST (0-32) U/L ALT (0-33) U/L Alkaline Phosphata se (35-105) IU/L Total Protein (6.6-8.7) g/dL Albumin (3.5-5.2) g/dL Globulin (1.3-4.6) g/dL Urine Color Yellow (Yellow) Urine Appearance Clear (CLEAR) Urine pH 5 (5-7) Ur Specific Gravit y 1.020 (1.005-1.030) Urine Protein Neg (Negative) Urine Glucose (UA) 4+ H (Normal) Urine Ketones Negative (Negative) Urine Blood Neg (Negative) Urine Nitrate Negative (Negative) Urine Bilirubin Neg (Negative) Urine Urobilinogen Neg (Negative) mg/dL Ur Leukocyte Lorraine ase Negative (Negative) Urine RBC None (0-2) /hpf Urine WBC 0-4 H (0-5) /hpf Ur Squamous Epith Cells 5-10 H (0-5) /hpf Amorphous Sediment Not Reportable Urine Bacteria Trace (NONE) /hpf Salicylates (3-10) mg/dL Urine Opiates Scre en Negative (Negative) ng/mL Acetaminophen (10-30) ug/mL Ur Barbiturates Sc reen Negative (Negative) ng/mL Ur Phencyclidine S crn Negative (Negative) ng/mL Ur Amphetamines Sc reen Negative (Negative) ng/mL U Benzodiazepines Scrn Negative (Negative) ng/mL Urine Cocaine Scre en Negative (Negative) ng/mL U Marijuana (THC) Screen Negative (Negative) ng/mL Ethyl Alcohol (0-10) mg/dL 06/29/20 Range/Units 13:25 WBC (4.0-10.0) 10^3/ uL RBC (4.1-5.3) 10^6/u L Hgb (11.5-15.3) g/dL Hct (37.0-47.0) % MCV (81-99) fL MCH (28.0-34.0) pg MCHC (30.0-36.0) g/dL RDW (12.1-15.1) % Plt Count (130-400) 10^3/c mm MPV (7.4-10.4) fL Neut % (Auto) % Lymph % (Auto) % [place] % (Auto) % Eos % (Auto) % Baso % (Auto) % Neut # (Auto) (1.8-7.7) 10^3/u L Lymph # (Auto) (0.8-4.8) 10^3/u L [place] # (Auto) (0.2-0.9) 10^3/u L Eos # (Auto) (0.0-0.8) 10^3/u L Baso # (Auto) (0.0-0.1) 10^3/u L Nucleated RBC % (a uto) % Nucleated RBCs # /100WBC Sodium 141 (136-145) mmol/L Potassium 3.9 (3.5-5.1) mmol/L Chloride 105 (98-107) mmol/L Carbon Dioxide 26 (22-29) mmol/L Anion Gap 13.9 (5-19) BUN 12 (6-20) mg/dL Creatinine 0.6 (0.5-0.9) mg/dL GFR Calculation 105.4 (90-130) mL/min Glucose 127 H (65-115) mg/dL Calculated Osmolal ity 293 (285-295) mOsm/k g Calcium 9.4 (8.5-10.5) mg/dL Total Bilirubin 0.2 (0.15-1.2) mg/dL AST 30 (0-32) U/L ALT 43 H (0-33) U/L Alkaline Phosphata se 139 H (35-105) IU/L Total Protein 6.9 (6.6-8.7) g/dL Albumin 3.9 (3.5-5.2) g/dL Globulin 3.0 (1.3-4.6) g/dL Urine Color (Yellow) Urine Appearance (CLEAR) Urine pH (5-7) Ur Specific Gravit y (1.005-1.030) Urine Protein (Negative) Urine Glucose (UA) (Normal) Urine Ketones (Negative) Urine Blood (Negative) Urine Nitrate (Negative) Urine Bilirubin (Negative) Urine Urobilinogen (Negative) mg/dL Ur Leukocyte Lorraine ase (Negative) Urine RBC (0-2) /hpf Urine WBC (0-5) /hpf Ur Squamous Epith Cells (0-5) /hpf Amorphous Sediment Urine Bacteria (NONE) /hpf Salicylates < 0.3 L (3-10) mg/dL Urine Opiates Scre en (Negative) ng/mL Acetaminophen < 5.0 L (10-30) ug/mL Ur Barbiturates Sc reen (Negative) ng/mL Ur Phencyclidine S crn (Negative) ng/mL Ur Amphetamines Sc reen (Negative) ng/mL U Benzodiazepines Scrn (Negative) ng/mL Urine Cocaine Scre en (Negative) ng/mL U Marijuana (THC) Screen (Negative) ng/mL Ethyl Alcohol < 10 (0-10) mg/dL Discharge Plan Discharge Patient Disposition: Admitted As Inpatient Admit Provider: Felton Ya Clinical Impression: Acute psychosis, Delusional disorder Condition: Stable Interventions: ED Discharge Assessment Last Done: 06/29/20 14:38 ED Charges Last Done: 06/29/20 14:38 Discharge Date/Time: 06/29/20 14:39 Coding Level of Care Code ED Head Char Filter Tank Tender for g Fwd Exam Comprehensive
[2020-06-29] MEDS: LORazepam 2 mg/mL INJ 1 mL IM (13:14)
[2020-06-29 13:36] LABS: Bilirubin Urine Neg (Negative); Blood Urine Neg (Negative); Glucose Urine UA 4+ (Normal); Ketones Urine Negative (Negative); Leukocyte Esterase Urine Negative (Negative); Nitrate Urine Negative (Negative); Protein Urine Neg (Negative); Urine Appearance Clear (CLEAR); Urine Color Yellow (Yellow); Urobilinogen Urine Neg (Negative); pH Urine 5 (5-7)
[2020-06-29 13:37] LABS: Add Urine Culture? No; Bacteria Urine TRACE /hpf; WBC Urine 0-4 /hpf (0-5)
[2020-06-29 13:38] LABS: Amphetamines Screen Urine Negative (Negative); Barbiturates Screen Urine Negative (Negative); Benzodiazepines Screen Urine Negative (Negative); Cocaine Screen Urine Negative (Negative); Opiate Screen Urine Negative (Negative); PCP Screen Urine Negative (Negative); THC Screen Urine Negative (Negative)
[2020-06-29 13:40] LABS: Basophils % 0.2 %; Eosinophils # 0.1 10^3/uL (0.0-0.8); Eosinophils % 0.7 %; Hematocrit 39.6 % (37.0-47.0); Hemoglobin 12.7 g/dL (11.5-15.3); Lymphocytes # 2.6 10^3/uL (0.8-4.8); Lymphocytes % 30.1 %; Mean Corpuscular HGB Conc 32.1 g/dL (30.0-36.0); Mean Corpuscular Volume 87.2 fL (81-99); Mean Platelet Volume 10.3 fL (7.4-10.4); Monocytes # 0.6 10^3/uL (0.2-0.9); Monocytes % 6.3 %; Neutrophils # 5.46 10^3/uL (1.8-7.7); Neutrophils % 62.4 %; Nucleated Red Blood Cells % 0 %; Platelet Count 300 10^3/cmm (130-400); Red Blood Count 4.54 10^6/uL (4.1-5.3); Red Cell Distribution Width 13.3 % (12.1-15.1); White Blood Count 8.8 10^3/uL (4.0-10.0)
[2020-06-29 13:59] LABS: Alanine Aminotransferase 43 U/L (0-33); Albumin Level 3.9 g/dL (3.5-5.2); Alkaline Phosphatase 139 IU/L (35-105); Anion Gap 13.9 (5-19); Aspartate Amino Transferase 30 U/L (0-32); Blood Urea Nitrogen 12 mg/dL (6-20); Calcium 9.4 mg/dL (8.5-10.5); Carbon Dioxide 26 mmol/L (22-29); Chloride 105 mmol/L (98-107); Glomerular Filtration Rate 105.4 mL/min (90-130); Glucose 127 mg/dL (65-115); Osmolality Calculated 293 mOsm/kg (285-295); Potassium 3.9 mmol/L (3.5-5.1); Sodium 141 mmol/L (136-145); Total Bilirubin 0.2 mg/dL (0.15-1.2); Total Protein 6.9 g/dL (6.6-8.7)
[2020-06-29 14:04] LABS: Acetaminophen < 5.0 ug/mL (10-30); Alcohol Level < 10 mg/dL (0-10); Salicylate < 0.3 mg/dL (3-10)
[2020-06-29 14:33] VITALS: BP 172/91; PULSE 94; RESP 18; O2SAT 98
[2020-06-29 14:38] VITALS: BP 172/91; PULSE 94; RESP 18; O2SAT 98
[2020-06-29 14:51] VITALS: BP 145/98; PULSE 85; TEMP 36.4; O2SAT 94
--- NOTE | 2020-06-29 15:58 | PC.NURSE ---
HOME MED, TRAMADOL, PT COMES IN WITH BOTTLE OF TRAMADOL 50 MG TABLETS, QTY IS #40. THIS BOTTLE WAS FILLED ON 06/24/20 WITH QTY #60. DIRECTIONS ON BOTTLE TAKE 1-2 TABLETS Q6H NEEDED FOR PAIN.
[2020-06-29 16:27] LABS: Glucose Point of Care 113 mg/dL (70-110)
--- NOTE | 2020-06-29 16:54 | PM.NHP ---
Providers/Chief Complaint Admitting Physician: Felton Ya Chief Complaint: says she's throwing up bugs HPI NPU History of Present Illness Shelley Galvan is a 49 year old female who was discharged a week ago having been acutely psychotic and treated with Invega 6 mg daily she said that stabilized her mood. She presents with multiple delusions about bugs and maggots but was unable to show me any of them. I encouraged her to do so whenever they appear. Her speech is pressured and her thoughts are racing. I do believe she does require mood stabilization. I think she will profit from lithium carbonate as well. Review of Systems Narrative: Denies: fever(s), chills or fatigue Eyes: Denies: change in vision or eye discomfort ENMT: Denies: throat pain, odynophagia, nasal discharge or nasal congestion Card: Denies: chest pain, palpitations, edema, swelling of feet/ankles, dyspnea on exertion or orthopnea Resp: Denies: dyspnea, productive cough or non-productive cough GI: Denies: abdominal pain, nausea, vomiting, diarrhea, constipation or hematochezia : Denies: flank pain, dysuria or hematuria Musc: Denies: neck pain, back pain or extremity swelling Skin/Breast: Denies: rash or new lesions Neuro: Denies: headache(s), numbness in extremities or weakness in extremities Meds NPU Home Medications Medication Instructions Recorded Confirmed Last Taken Type Farxiga 5 mg PO DAILY #30 tab 06/24/20 06/29/20 06/29/20 Rx Trintellix 20 mg PO DAILY #30 tab 06/24/20 06/29/20 Unknown Rx ibuprofen 800 mg PO TID PRN #40 tab 06/24/20 06/29/20 06/29/20 Rx metformin 1,000 mg PO BID #60 tab 06/24/20 06/29/20 06/29/20 Rx metoprolol tartrate 25 mg PO DAILY #30 tab 06/24/20 06/29/20 06/29/20 Rx paliperidone 6 mg PO DAILY #30 tab 06/24/20 06/29/20 06/26/20 Rx permethrin 1 applic TOPICAL BID #3 g 06/24/20 06/29/20 06/25/20 Rx tramadol 50 - 100 mg PO Q6H PRN #60 tab 06/24/20 06/29/20 06/29/20 Rx trazodone 100 mg PO BEDTIME #30 tab 06/24/20 06/29/20 06/28/20 Rx [place] Heartburn 1 tab PO PRN 06/28/20 06/29/20 Unknown History levothyroxine 25 mcg PO DAILY 06/29/20 06/29/20 06/29/20 History Allergies Allergy/AdvReac Type Severity Reaction Status Date / Time aripiprazole [From Abilify] Allergy hives and Verified 06/29/20 13:21 swelling bupropion [From Wellbutrin] Allergy hives and Verified 06/29/20 13:21 swelling codeine Allergy severe Verified 06/29/20 13:21 itching PFSH NPU PFSH: Medical History Alcohol dependence, in remission Anxiety Diabetes type 2, controlled Gastroesophageal reflux Hypertension Hypothyroidism (acquired) Major depressive disorder, recurrent severe without psychotic features Nicotine dependence, cigarettes, uncomplicated Obesity Surgical History History of cholecystectomy History of dilation and curettage Status post breast reduction (~2009) Family History Grandmother Colon cancer maternal Diabetes maternal and paternal Hypertension maternal and paternal Grandfather Diabetes maternal and paternal Hypertension maternal and paternal Father Diabetes Hypertension Mother Diabetes Hypertension Denies family history of Anesthesia complication Bleeding disorder Social History Smoking and tobacco status: current every day smoker cigarettes Smoking risk assessment/counseling performed?: Yes Tobacco counseling given: counseling >3 minutes Alcohol intake: former Year of sobriety/quit date alcohol: 1 Mental Status Exam MSE Comments: This is a 49-year-old female who presents at her stated age. Mood is anxious and affect is blunted. Thought processes are markedly racing; she rambles without cessation about her bug delusion. I think she could go on all night. While she may be dysphoric I do not see depression as a really accurate diagnosis what we are looking at here is a manic or mixed state with psychosis. Schizoaffective disorder would cover the [place] diagnostically. The patient denies any suicidal or homicidal ideation, plan or intent. It is difficult to assess cognitive function; insight and judgment are significantly impaired. Vitals/I&O/Wt Last Vital Signs Temp 97.5 F L 06/29/20 14:51 Pulse 85 06/29/20 14:51 Resp 18 06/29/20 14:38 BP 145/98 06/29/20 14:51 Pulse Ox 94 06/29/20 14:51 Weight last 48 hrs Weight 210 lb Physical Exam Narrative: EXAM NARRATIVE: HENMT: HEAD & SCALP: normocephalic MOUTH: Normal oral and palatal mucosa present THROAT: posterior oropharynx normal and uvula midline Neck/C-Spine: Supple; normal visual inspection Resp: normal respiratory effort, No retractions, No use of accessory muscles and clear to auscultation bilaterally Cardio: regular rate and rhythm HEART SOUNDS: S1 normal heart sound present and S2 normal heart sound present GI: Soft to palpation : no CVA tenderness Neuro: patient oriented x3 and moves all extremities Data NPU : 06/29/20 13:25 06/29/20 13:25 A&P Assessment and plan (1) Schizoaffective disorder, bipolar type: Status: Acute Involuntary Hold Information 96 Hour Hold: 96 Hour Involuntary Admission: Yes 96 Hour Hold Ending Date: 07/04/20 96 Hour Hold Ending Time: 12:01 Attestations NPU Medical Necessity Statement*: This is a complex case. I anticipate 7-10 midnights. Time Spent in Patient Care: Greater than 35 minutes Coding Level of Care Code Acute [facility] for [facility] Diagnoses Schizoaffective disorder, bipolar type F25.0
[2020-06-29] MEDS: metformin 500 mg Tablet 1000 MG PO (17:10)
[2020-06-29] MEDS: nicotine 2 mg Gum BUCCAL (17:26)
[2020-06-29] MEDS: lithium carbonate 300 mg Capsule PO (19:46)
[2020-06-29] MEDS: trazodone 100 mg Tablet PO (19:46)
[2020-06-29 19:57] LABS: Glucose Point of Care 104 mg/dL (70-110)
[2020-06-29 22:00] VITALS: BP 138/92; PULSE 72; RESP 16; TEMP 36.6; O2SAT 98
[2020-06-30 06:00] VITALS: BP 121/67; PULSE 81; RESP 15; TEMP 36.7; O2SAT 97
[2020-06-30 06:38] LABS: Glucose Point of Care 103 mg/dL (70-110)
[2020-06-30] MEDS: paliperidone ER 6 mg Tablet PO (08:21)
[2020-06-30] MEDS: lithium carbonate 300 mg Capsule PO (08:22)
[2020-06-30] MEDS: levothyroxine 25 mcg Tablet PO (08:22)
[2020-06-30] MEDS: metoprolol succinate ER (24 HR) 25 mg Tablet PO (08:22)
[2020-06-30] MEDS: metformin 500 mg Tablet 1000 MG PO (08:22)
[2020-06-30] MEDS: acetaminophen 325 mg Tablet 650 MG PO ×2 (08:24→13:17)
[2020-06-30] MEDS: nicotine 21 mg Patch 1 PATCH TRANSDERMA (08:43)
[2020-06-30 11:18] LABS: Glucose Point of Care 133 mg/dL (70-110)
--- NOTE | 2020-06-30 13:23 | P.DS_ITS ---
Diagnoses at Discharge Discharge Diagnosis (1) Schizoaffective disorder, bipolar type: Status: Acute Reason for Visit Reason for Visit: says she's throwing up bugs Brief History: History of Present Illness Shelley Galvan is a 49 year old female who was discharged a week ago having been acutely psychotic and treated with Invega 6 mg daily she said that stabilized her mood. She presents with multiple delusions about bugs and maggots but was unable to show me any of them. I encouraged her to do so whenever they appear. Her speech is pressured and her thoughts are racing. I do believe she does require mood stabilization. I think she will profit from lithium carbonate as well. Per her 06/20/2020 inpatient psychiatric evaluation: History of Present Illness Shelley Galvan is a 49 year old female who presented to the emergency department with the following report: Chief complaint: General Medical Stated complaint: NAUSEA/ NUMBNESS Time Seen by Provider: 06/19/20 12:43 Source: patient Mode of arrival: ambulatory Limitations: no limitations History of Present Illness: HPI narrative: Ms. Galvan is a nice 49-year-old female who comes in complaining of generalized weakness and generalized numbness. She states these symptoms have been going on for quite some time. She denies any weakness on one side worse than another. She denies any headache, neck pain, chest pain, shortness of breath, nausea vomiting or abdominal pain. Patient states the symptoms are present for several months but is progressively coming worse. She otherwise denies any complaints or concerns she cannot give me an answer as to why she decided to come in with a problem today and not prior to today. Associated symptoms: Deny chest pain, dyspnea, headache(s), nausea, rash, palpitations, syncope or vomiting. She was admitted to the neuropsychiatric unit for definitive treatment of those issues. She presented today with lots of answers which were I do not know. She reports that she has been hospitalized in the past but she does not remember when. She reports that she has had outpatient services but she could not really elaborate. She reports that she started feeling strange and attributes that to her somehow getting drugs into her system. She has a history of use of drugs but she denies having used for a year or longer. She is unclear how her UDS could have had the outcome intact. She reports having psychotic symptoms and having strange thoughts. But she also endorses thoughts that she argues to be real including the fact that she completed had some bug particles in it that are the same things that are in her hair. She reports there being maggots on her dog and things of that nature. She reports numbness in her hands and feet that she attributes to her . And she also endorses that they had sex and that she knew something was not because he wanted the lights off and he always wants the lights on and he feels that he implanted something in her vagina. She was unable to give great historical data due to her confusion not answered I do not know. We did review her psychiatric evaluation from 08/03/2018 and she denied significant or substantive changes. However she does report living in a motel right now because she does not trust her . An excerpt of that evaluation is included below. Per her 08/03/2018 [facility] psychiatric evaluation: [facility] Psychiatric Evaluation [facility] Psychiatric Evaluation TIME IN: 1200 TIME OUT: 1245 CHIEF COMPLAINT: Depression and anxiety HISTORY OF PRESENT ILLNESS: When presents to behavioral health care for psychiatric evaluation. Monica reports recent hospitalization. Record indicate she was hospitalized 2 weeks ago and Monica did not realize it was that recent. She reports depression . States she sleeps too much and then not enough. Tells me she can sleep for 2 days straight. States she's been having nightmares every night. Has trouble falling asleep because she can't turn her mind off. Reports she has been gaining weight. States difficulty concentrating. Denies an acute suicidal plan but states sometimes she feels like she does not want to live. Turned 48 years old this month and states this has been difficult for her. No homicidal thoughts and no auditory visual hallucinations. PAST PSYCHIATRIC HISTORY: Client has been hospitalized 3 times that [facility] neuropsychiatric unit in February 2016, February 2018, and June 2018. She reports her primary care provider Yessica Ramirez has been prescribing her Cymbalta and clonazepam from [facility]. Prior to that she has received treatment from a mental health center in [facility] and [facility] but states this was greater than 10 years ago. She denies previous suicide attempts. She tells me she has been prescribed every medication in the [place] but has difficulty verbalizing which medicine she has been on. She has an allergy to codeine, Abilify, and Wellbutrin. Tells me that clonazepam she has been on for 10+ years and this is the only medicine that has been helpful to her. She stopped the hydroxyzine that was prescribed to her during her last hospitalization stating it was not helpful. She states when she was released from the hospital she was posted take Cymbalta 90 mg daily, a 30 mg and 60 mg tab. She states she misunderstood the directions and she took 2 of the 60 mg tabs for a while and then she read the directions and realize she was only supposed to take the 90. She has difficulty verbalizing the timeframes on how long she took the varying doses of medicine. FAMILY PSYCHIATRIC HISTORY: Reports her mother had depression PAST MEDICAL HISTORY: Hypertension, diabetes type II, hepatitis C, GERD, seizures. Previous surgeries include cholecystectomy, tubal ligation, and a breast reduction. Current primary care provider is Deanne Singh in [place]. States she is prescribed metoprolol, metformin, and Protonix. SUBSTANCE USE HISTORY: Current: Smokes one pack of cigarettes per day. Currently denies alcohol use and denies drug use. Past: Previously has drank alcohol. States she has not drank alcohol in 7 months. Records indicate her BAL was 320 to July 16 of this year. We discussed this client has difficulty remembering the dates. She has received 2 DWIs in the past. She states one was 7 months ago and one was 2 or 3 years ago. She reports she has used crack and methamphetamine in her 20s. History of IVDU: Last occurrence: Reports IV drug use in her 20s which led to her hepatitis C. Treatment History: None reported SOCIAL HISTORY: Lives in [place] with her boyfriend. Reports she moved to [place] about 2 years ago. Has 4 kids that are all grown. Does not have a close relationship with her kids and states she only talks to her youngest child. Receives disability income for depression and headaches and has for the last 10 years. Her mother 1 year ago. Went to school until the seventh grade and states she dropped out of school because she was . Did not complete her GED. Has received 2 DWIs in the past. Last one was 7 months ago. 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 Hospital Course Hospital Course Shelley presented to the emergency department with the following report: Chief complaint: Nausea/Vomiting/Diarrhea Stated complaint: says she's throwing up bugs Time Seen by Provider: 06/29/20 12:10 History of Present Illness: HPI narrative: Patient is a 49-year-old female who comes to the ED with delusions. Patient has a past medical history of acute psychosis, major depressive disorder and anxiety. Patient was recently released from [facility] on . patient believes that her ex- is purposefully infecting her with parasites and other bugs to try to kill her. She says she sees these bugs are in her vagina and anus. She also reports coughing them up as well. She showed me an example of 1 of these bugs she coughed up and look like a speck of food. She is very anxious and concerned that nobody believes her that these bugs/parasites are going to kill her. Patient was seen here yesterday with similar complaint and stool parasite test performed and it was negative. Associated symptoms: Deny chest pain, dyspnea, headache(s), nausea, rash, palpitations or vomiting. She was admitted to the neuropsychiatric unit for definitive treatment of these issues. She was started on lithium to assist with her mood stabilization. She slowly acclimated to the individual, group and milieu therapies provided. She was on a voluntary admission and ultimately demanded to be discharged without any indication of lethality towards herself or others. There was some concerns about malingering based on phone calls where she seemed to be fairly well put together. However she did endorse a plan to follow-up with the recommendations of the treatment team. She had routine laboratory studies during the hospitalization which were within normal limits with a few outliers. Of note her UDS was not positive for amphetamines as it had been at the previous stay. A general medical evaluation which was also within normal limits and revealed no new acute processes. Discharge Summary The time of discharge, her psychosis was resolving and she is absent lethality. Her mood and anxiety were improving. She endorsed a plan to avoid all drugs of abuse and follow-up with the outpatient resources per the treatment team's recommendations. She was evaluated and deemed to be absent credible lethality she had a stable plan she was discharging to, she will voluntary commitment and so she was allowed to discharge. Involuntary Hold Information 96 Hour Hold: 96 Hour Involuntary Admission: Yes 96 Hour Hold Ending Date: 07/04/20 96 Hour Hold Ending Time: 12:01 Mental Status Exam MSE Comments: This is an obese white female with scrubs on with limited grooming and eye contact. No abnormal movements except for mild psychomotor retardation. Cooperative with exam in mild distress. Speech was normal rate and volume. Mood described as fine, affect subdued and odd. Thought process organized. Thought content: Patient denied suicidal or homicidal ideations, there were no delusions reported but paranoid, persecutory and bizarre delusions were noted. Attention and concentration were limited and memory was unreliable but none were formally tested. He is alert oriented to person and place. Insight and judgment are limited, impulse control is impaired. Discharge Data Data Completed and Pending: Labs from last 24 hours 06/30/20 06/30/20 06/29/20 11:14 06:35 19:53 WBC RBC Hgb Hct MCV MCH MCHC RDW Plt Count MPV Neut % (Auto) Lymph % (Auto) [place] % (Auto) Eos % (Auto) Baso % (Auto) Neut # (Auto) Lymph # (Auto) [place] # (Auto) Eos # (Auto) Baso # (Auto) Nucleated RBC % (a uto) Nucleated RBCs # Sodium Potassium Chloride Carbon Dioxide Anion Gap BUN Creatinine GFR Calculation Glucose POC Glucose 133 103 104 Calculated Osmolal ity Calcium Total Bilirubin AST ALT Alkaline Phosphata se Total Protein Albumin Globulin Urine Color Urine Appearance Urine pH Ur Specific Gravit y Urine Protein Urine Glucose (UA) Urine Ketones Urine Blood Urine Nitrate Urine Bilirubin Urine Urobilinogen Ur Leukocyte Lorraine ase Urine RBC Urine WBC Ur Squamous Epith Cells Amorphous Sediment Urine Bacteria Salicylates Urine Opiates Scre en Acetaminophen Ur Barbiturates Sc reen Ur Phencyclidine S crn Ur Amphetamines Sc reen U Benzodiazepines Scrn Urine Cocaine Scre en U Marijuana (THC) Screen Ethyl Alcohol 06/29/20 06/29/20 06/29/20 16:24 13:25 13:25 WBC 8.8 RBC 4.54 Hgb 12.7 Hct 39.6 MCV 87.2 MCH 28.0 MCHC 32.1 RDW 13.3 Plt Count 300 MPV 10.3 Neut % (Auto) 62.4 Lymph % (Auto) 30.1 [place] % (Auto) 6.3 Eos % (Auto) 0.7 Baso % (Auto) 0.2 Neut # (Auto) 5.46 Lymph # (Auto) 2.6 [place] # (Auto) 0.6 Eos # (Auto) 0.1 Baso # (Auto) 0.0 Nucleated RBC % (a uto) 0 Nucleated RBCs # 0.0 Sodium 141 Potassium 3.9 Chloride 105 Carbon Dioxide 26 Anion Gap 13.9 BUN 12 Creatinine 0.6 GFR Calculation 105.4 Glucose 127 H POC Glucose 113 Calculated Osmolal ity 293 Calcium 9.4 Total Bilirubin 0.2 AST 30 ALT 43 H Alkaline Phosphata se 139 H Total Protein 6.9 Albumin 3.9 Globulin 3.0 Urine Color Urine Appearance Urine pH Ur Specific Gravit y Urine Protein Urine Glucose (UA) Urine Ketones Urine Blood Urine Nitrate Urine Bilirubin Urine Urobilinogen Ur Leukocyte Lorraine ase Urine RBC Urine WBC Ur Squamous Epith Cells Amorphous Sediment Urine Bacteria Salicylates < 0.3 L Urine Opiates Scre en Acetaminophen < 5.0 L Ur Barbiturates Sc reen Ur Phencyclidine S crn Ur Amphetamines Sc reen U Benzodiazepines Scrn Urine Cocaine Scre en U Marijuana (THC) Screen Ethyl Alcohol < 10 06/29/20 06/29/20 13:11 13:11 WBC RBC Hgb Hct MCV MCH MCHC RDW Plt Count MPV Neut % (Auto) Lymph % (Auto) [place] % (Auto) Eos % (Auto) Baso % (Auto) Neut # (Auto) Lymph # (Auto) [place] # (Auto) Eos # (Auto) Baso # (Auto) Nucleated RBC % (a uto) Nucleated RBCs # Sodium Potassium Chloride Carbon Dioxide Anion Gap BUN Creatinine GFR Calculation Glucose POC Glucose Calculated Osmolal ity Calcium Total Bilirubin AST ALT Alkaline Phosphata se Total Protein Albumin Globulin Urine Color Yellow Urine Appearance Clear Urine pH 5 Ur Specific Gravit y 1.020 Urine Protein Neg Urine Glucose (UA) 4+ H Urine Ketones Negative Urine Blood Neg Urine Nitrate Negative Urine Bilirubin Neg Urine Urobilinogen Neg Ur Leukocyte Lorraine ase Negative Urine RBC None Urine WBC 0-4 H Ur Squamous Epith Cells 5-10 H Amorphous Sediment Not Reportable Urine Bacteria Trace Salicylates Urine Opiates Scre en Negative Acetaminophen Ur Barbiturates Sc reen Negative Ur Phencyclidine S crn Negative Ur Amphetamines Sc reen Negative U Benzodiazepines Scrn Negative Urine Cocaine Scre en Negative U Marijuana (THC) Screen Negative Ethyl Alcohol Vitals: Last Vital Signs Temp 98.0 F 06/30/20 06:00 Pulse 81 06/30/20 06:00 Resp 15 06/30/20 06:00 BP 121/67 06/30/20 06:00 Pulse Ox 97 06/30/20 06:00 Discharge Plan Discharge Patient Disposition: Home Condition: Stable Prescriptions: New lithium carbonate 300 mg Capsule 300 mg PO 0900,2100 30 Days Qty: 60 RF: 1 Continued [place] Heartburn 1,940-1,000 mg Tablet, Effervescent 1 tab PO PRN RF: 0 paliperidone 6 mg Tablet Extended Release 24hr 6 mg PO DAILY Qty: 30 RF: 3 ibuprofen 800 mg Tablet 800 mg PO TID PRN (Reason: pain) Qty: 40 RF: 3 permethrin 5 % cream 1 applic TOPICAL BID Qty: 3 RF: 3 tramadol 50 mg Tablet 50 - 100 mg PO Q6H PRN (Reason: Moderate Pain) Qty: 60 RF: 3 trazodone 100 mg tablet 100 mg PO BEDTIME Qty: 30 RF: 3 metformin 1,000 mg Tablet 1,000 mg PO BID Qty: 60 RF: 3 metoprolol tartrate 25 mg Tablet 25 mg PO DAILY Qty: 30 RF: 3 Trintellix 20 mg Tablet 20 mg PO DAILY Qty: 30 RF: 3 Farxiga 5 mg Tablet 5 mg PO DAILY Qty: 30 RF: 3 levothyroxine 25 mcg capsule 25 mcg PO DAILY RF: 0 Discharge Orders: Discharge Order (Routine); Ordered 06/30/20 Ordered By: Sohail Vital [place] [facility] [place] - 07/09/20 11:00 am (Juana Acevedo for medication mgmt. telephone visit. make sure to call them if needed. ) Discharge Diet: Regular Discharge Activity: Resume usual activity Discharge Attestations [facility] Time Spent in Discharge Care*: less than 30 min Specific Discharge Activities: Specific discharge activities: educating patient, discussing with piano case maker/social workers/dc planners, documenting/other paperwork and evaluating patient/reviewing data Coding Level of Care Code Acute Gas Dispatcher for [facility] Fwd Diagnoses Schizoaffective disorder, bipolar type F25.0
[2020-06-30 13:26] VITALS: BP 121/67; PULSE 81; RESP 15; TEMP 36.7; O2SAT 97
== END 2020-06-30 13:52 | disposition home or self-care (01) | DRG 885 ==
LOC: ER 12:31 → NP 14:14
PROVIDERS: Physician Assistant
DX: F25.0 Schizoaffective disorder, bipolar type (principal); F41.8 Other specified anxiety disorders; I10 Essential (primary) hypertension; E11.9 Type 2 diabetes mellitus without complications; K21.9 Gastro-esophageal reflux disease without esophagitis; B19.20 Unspecified viral hepatitis C without hepatic coma; F17.210 Nicotine dependence, cigarettes, uncomplicated; Z79.84 Long term (current) use of oral hypoglycemic drugs
CPT/HCPCS: 12345; 36416; 80053; 80306; 80307; 81001; 82962; 85025; 96372; 99284; J2060

== ENCOUNTER → 2021-12-10 10:46 | Outpatient (BNVA) | payer MEDICAID, SELFPAY | PROVIDERS: Visit Provider Nurse Practitioner | DX: F43.12 Post-traumatic stress disorder, chronic (principal); F10.21 Alcohol dependence, in remission; F33.2 Major depressive disorder, recurrent severe without psychotic features | CPT/HCPCS: 90792 ==

== ENCOUNTER → 2022-02-15 07:07 | Outpatient (BNVA) | payer MEDICAID, SELFPAY | PROVIDERS: Visit Provider Nurse Practitioner | DX: F43.12 Post-traumatic stress disorder, chronic (principal); F33.2 Major depressive disorder, recurrent severe without psychotic features; F10.10 Alcohol abuse, uncomplicated | CPT/HCPCS: 99214 ==

== ENCOUNTER 2023-04-29 09:58 | Emergency (ER) | payer MEDICAID, SELFPAY ==
[2023-04-29 10:00] VITALS: BP 141/88; PULSE 91; RESP 18; TEMP 36.8; O2SAT 94
--- NOTE | 2023-04-29 10:06 | W.ED.DIZZY ---
HPI - Dizziness General: Chief Complaint: Dizziness Stated Complaint: dizzy/ anxiety Time Seen by Provider: 04/29/23 10:01 Source: patient Mode of arrival: EMS Limitations: no limitations History of Present Illness: HPI Narrative: Patient is a 52-year-old female presents to ED today with a complaint of dizziness and feeling fainty . She states symptoms started earlier today. She states she has continued to be able to ambulate despite the dizziness. Patient states she has had multiple episodes like this previously stating she has had them for many decades now with no known etiology. Does not complain of shortness of breath, difficulty breathing, chest pain, or palpitations. She states she feels like her is poisoning her. Looking at previous documentation patient was seen in our ED several times during 2019 for delusions thinking that her is poisoning her or feeding her bugs. Patient denies headache or visual changes. No trouble with speech or gait. Reports history of untreated diabetes and anxiety. MD elicited complaint: dizziness Onset (ago): hour(s) Severity: mild Description: near-syncope History of similar symptoms: Yes Exacerbating factors: nothing Relieving factors: nothing Associated symptoms: Reports no associated symptoms; Denies chest pain, chills, headache(s), malaise, nausea, palpitations, syncope or vomiting Associated neuro symptoms: Reports no associated symptoms; Deny confusion or numbness in extremities Stroke scale total: 0 Review of Systems Const: Denies: fever(s), chills, body aches, fatigue or malaise Eyes: Denies: change in vision or blurry vision Card: Denies: chest pain, palpitations, irregular heart rhythm, edema, swelling of feet/ankles, lightheadedness, syncope, pre-syncope, dyspnea on exertion, orthopnea, leg pain with exertion or acrocyanosis Resp: Denies: dyspnea, productive cough, wheezing, pain on inspiration, hemoptysis or chest congestion GI: Denies: abdominal pain, nausea, vomiting, heartburn or diarrhea : Denies: flank pain, difficulty voiding, dysuria, urinary frequency, urinary urgency or urinary hesitancy Musc: Denies: neck pain, back pain or joint pain Skin/Breast: Denies: rash Neuro: Reports: dizziness; Denies: headache(s), numbness in extremities, weakness in extremities, sensory changes, lack of coordination, difficulty walking, frequent falls, confusion, behavioral changes or seizure-like activity PFS ED PFSH: Medical History Alcohol abuse, uncomplicated Alcohol dependence, in remission Alcohol dependence, in remission Anxiety Chronic post-traumatic stress disorder Diabetes type 2, controlled Gastroesophageal reflux Hypertension Hypothyroidism (acquired) Major depressive disorder, recurrent severe without psychotic features Major depressive disorder, recurrent severe without psychotic features Nicotine dependence, cigarettes, uncomplicated Obesity Surgical History History of cholecystectomy History of dilation and curettage Status post breast reduction (~2009) Family History Grandmother Colon cancer maternal Diabetes maternal and paternal Hypertension maternal and paternal Grandfather Diabetes maternal and paternal Hypertension maternal and paternal Father Diabetes Hypertension Mother Diabetes Hypertension Denies family history of Anesthesia complication Bleeding disorder Social History Smoking and tobacco status: current every day smoker cigarettes and e-cigarettes E-Cigarette Details: with nicotine Smoking risk assessment/counseling performed?: Yes Tobacco counseling given: counseling >3 minutes Alcohol intake: former Year of sobriety/quit date alcohol: 1 Substance/Drug Use: never Physical Exam Const: COMMON NORMALS: no acute distress, patient oriented x3, no limitations, alert and well nourished GENERAL APPEARANCE: cooperative and anxious ORIENTATION/CONSCIOUSNESS: Yes awake, Yes oriented to person, Yes oriented to place and Yes oriented to time HENMT: COMMON NORMALS: normocephalic and atraumatic HEAD & SCALP: normocephalic and atraumatic Eye: COMMON NORMALS: Equal, round and reactive pupils present and EOMs intact bilaterally GENERAL EYE: appearance normal, both eyes and all related structures and normal light reflex PUPIL: Yes Equal, round and reactive pupils present DIRECT OPHTHALMOSCOPY: Yes normal light reflex OTHER: no nystagmus Neck/C-Spine: COMMON NORMALS: full ROM, no lymphadenopathy, supple and no meningeal signs Chest: COMMONS NORMALS: normal inspection of the chest Resp: COMMON NORMALS: normal respiratory effort and clear to auscultation bilaterally AUSCULTATION: clear to auscultation bilaterally Cardio: COMMON NORMALS: regular rate and regular rhythm RATE: regular rate RHYTHM: regular rhythm GI: COMMON NORMALS: Normal to inspection, nondistended, normoactive bowel sounds present, Soft to palpation, non-tender, No hepatosplenomegaly present and no masses PALPATION: Yes Soft to palpation and Yes No hepatosplenomegaly present : COMMON NORMALS: Yes no CVA tenderness BLADDER/KIDNEY EXAM: Yes no CVA tenderness Back/Pelvis: COMMON NORMALS: no CVA tenderness and thoracic and lumbar spine normal to inspection Extremity: COMMON NORMALS: normal to inspection GENERAL: Yes normal exam except as noted Neuro: SERGIO COMA SCALE: document GCS findings Sergio coma scale eye opening: Spontaneous Sergio coma scale verbal response: Orientated Henderson coma scale motor response: Obey commands Henderson coma scale total score: 15 COMMON NORMALS: patient oriented x3 SENSORIUM/ORIENTATION: Yes alert, Yes oriented to person, Yes oriented to place and Yes oriented to time MENINGEAL SIGNS: Yes no meningeal signs Skin: COMMON NORMALS: no rashes or lesions noted GENERAL SKIN EXAM: no rashes or lesions noted Course Vital Signs: Vital signs: Vital Signs Temperature 98.2 F 04/29/23 10:00 Pulse Rate 91 04/29/23 10:00 Respiratory Rate 18 04/29/23 10:00 Blood Pressure 141/88 04/29/23 10:00 Pulse Oximetry 94 04/29/23 10:00 Oxygen Delivery Me thod Room Air 04/29/23 10:00 MDM - Dizziness Medical Decision Making Patient feels much better. She is ambulating without difficulty or assistance. At this time patient is stable from an emergency standpoint. No emergent cause for her dizziness. I will send her home with Vistaril and will have CM set her up with a PCP . Return to ED precautions given. Lab Data 04/29/23 10:26 04/29/23 10:26 Laboratory Results WBC 6.92 10^3/uL (3.29-11.43) 04/29/23 10:26 RBC 4.94 10^6/uL (3.85-5.65) 04/29/23 10:26 Hgb 13.90 g/dL (11.27-16.99) 04/29/23 10:26 Hct 43.3 % (36-47) 04/29/23 10:26 MCV 87.7 fl (85-98) 04/29/23 10:26 MCH 28.1 pg (27-33) 04/29/23 10:26 MCHC 32.1 g/dL (30-55) 04/29/23 10:26 RDW 12.8 % (12.1-15.1) 04/29/23 10:26 Plt Count 233 10^3/cmm (157-399) 04/29/23 10:26 MPV 9.7 fL (7.4-10.4) 04/29/23 10:26 Neut % (Auto) 63.9 % 04/29/23 10:26 Lymph % (Auto) 27.9 % 04/29/23 10:26 Stokes % (Auto) 7.1 % 04/29/23 10:26 Eos % (Auto) 0.7 % 04/29/23 10:26 Baso % (Auto) 0.1 % 04/29/23 10:26 Neut # (Auto) 4.42 10^3/uL (1.8-7.7) 04/29/23 10:26 Lymph # (Auto) 1.9 10^3/uL (0.8-4.8) 04/29/23 10:26 Stokes # (Auto) 0.5 10^3/uL (0.2-0.9) 04/29/23 10:26 Eos # (Auto) 0.1 10^3/uL (0.0-0.8) 04/29/23 10:26 Baso # (Auto) 0.0 10^3/uL (0.0-0.1) 04/29/23 10:26 Nucleated RBC % (auto) 0 % 04/29/23 10:26 Nucleated RBCs # 0.0 /100WBC 04/29/23 10:26 Sodium 142 mmol/L (136-145) 04/29/23 10:26 Potassium 4.2 mmol/L (3.5-5.1) 04/29/23 10:26 Chloride 105 mmol/L (98-107) 04/29/23 10:26 Carbon Dioxide 30 mmol/L (22-29) H 04/29/23 10:26 Anion Gap 11.2 (5-19) 04/29/23 10:26 BUN 11 mg/dL (6-20) 04/29/23 10:26 Creatinine 0.6 mg/dL (0.5-0.9) 04/29/23 10:26 GFR Calculation 104.2 mL/min (90-130) 04/29/23 10:26 Glucose 174 mg/dL (65-115) H 04/29/23 10:26 Calculated Osmolality 298 mOsm/kg (285-295) H 04/29/23 10:26 Calcium 9.1 mg/dL (8.5-10.5) 04/29/23 10:26 Total Bilirubin 0.3 mg/dL (0.15-1.2) 04/29/23 10:26 AST 23 U/L (0-32) 04/29/23 10:26 ALT 35 U/L (0-33) H 04/29/23 10:26 Alkaline Phosphatase 147 U/L (35-105) H 04/29/23 10:26 Total Protein 6.3 g/dL (6.6-8.7) L 04/29/23 10:26 Albumin 4.0 g/dL (3.5-5.2) 04/29/23 10:26 Globulin 2.3 g/dL (1.3-4.6) 04/29/23 10:26 Urine Color Yellow (Yellow) 04/29/23 11:22 Urine Appearance Clear (CLEAR) 04/29/23 11:22 Urine pH 5 (5-7) 04/29/23 11:22 Ur Specific Raysal 1.015 (1.005-1.030) 04/29/23 11:22 Urine Protein Neg (Negative) 04/29/23 11:22 Urine Glucose (UA) Norm (Normal) 04/29/23 11:22 Urine Ketones Negative (Negative) 04/29/23 11:22 Urine Blood Neg (Negative) 04/29/23 11:22 Urine Nitrate Negative (Negative) 04/29/23 11:22 Urine Bilirubin Neg (Negative) 04/29/23 11:22 Urine Urobilinogen Norm mg/dL (Negative) 04/29/23 11:22 Ur Leukocyte Esterase 1+ (Negative) H 04/29/23 11:22 Urine RBC 0-4 /hpf (0-2) H 04/29/23 11:22 Urine WBC 5-10 /hpf (0-5) H 04/29/23 11:22 Ur Squamous Epith Cells 10-15 /hpf (0-5) H 04/29/23 11:22 Amorphous Sediment Not Reportable 04/29/23 11:22 Urine Bacteria Trace /hpf (NONE) 04/29/23 11:22 Urine Mucus 2+ /hpf 04/29/23 11:22 Urine Opiates Screen Negative ng/mL (Negative) 04/29/23 11:22 Ur Barbiturates Screen Negative ng/mL (Negative) 04/29/23 11:22 Ur Phencyclidine Scrn Negative ng/mL (Negative) 04/29/23 11:22 Ur Amphetamines Screen Positive ng/mL (Negative) H 04/29/23 11:22 U Benzodiazepines Scrn Negative ng/mL (Negative) 04/29/23 11:22 Urine Cocaine Screen Negative ng/mL (Negative) 04/29/23 11:22 U Marijuana (THC) Screen Negative ng/mL (Negative) 04/29/23 11:22 Discharge Plan Discharge Patient Disposition: Home Clinical Impression: Dizziness, Anxiety Condition: Stable Prescriptions: New Vistaril 50 mg capsule 50 mg PO Q8H PRN (Reason: anxiety) Qty: 30 0RF Discontinued buspirone 10 mg tablet 10 mg PO BID Qty: 60 1RF duloxetine [Cymbalta] 60 mg capsule,delayed release(DR/EC) 60 mg PO DAILY Qty: 30 1RF trazodone 100 mg tablet 100 mg PO .HS Qty: 30 1RF Discharge Orders: Discharge ED (Routine); Ordered 04/29/23 Ordered By: Fannie Pisano Activity Restrictions/Additional Instructions: As we discussed case management will reach out to you shortly to help set you up with a follow-up primary care appointment to get back on some of your normal medications. Coding Level of Care Code ED [employer] for Murali Christie
[2023-04-29] MEDS: meclizine 25 mg tablet 50 MG PO (10:11)
[2023-04-29] MEDS: LORazepam 2 mg/mL INJ 1 mL 1 MG IVP (10:11)
--- NOTE | 2023-04-29 10:14 | ECG_ITS ---
[facility] Test Date: 2023-04-29 Pat Name: Shelley Galindo Department: Room: Gender: Female Usability Strategist: : 1970 Requested By: Fannie Pisano Order Number: [id number] Melanie MD: Christiana Fried M.D. Measurements Intervals [place] Rate: 87 P: 14 CA: 127 QRS: 41 QRSD: 77 T: 31 QT: 356 QTc: 431 Interpretive Statements SINUS RHYTHM Compared to ECG 07/16/2018 22:48:54 No significant changes Electronically Signed On 04-29-2023 13:02:51 CDT by Christiana Fried M.D. [email or web address]
[2023-04-29 10:36] LABS: Basophils % 0.1 %; Eosinophils # 0.1 10^3/uL (0.0-0.8); Eosinophils % 0.7 %; Hematocrit 43.3 % (36-47); Lymphocytes # 1.9 10^3/uL (0.8-4.8); Lymphocytes % 27.9 %; Mean Corpuscular HGB Conc 32.1 g/dL (30-55); Mean Corpuscular Hemoglobin 28.1 pg (27-33); Mean Corpuscular Volume 87.7 fl (85-98); Mean Platelet Volume 9.7 fL (7.4-10.4); Monocytes # 0.5 10^3/uL (0.2-0.9); Monocytes % 7.1 %; Neutrophils # 4.42 10^3/uL (1.8-7.7); Neutrophils % 63.9 %; Nucleated Red Blood Cells % 0 %; Platelet Count 233 10^3/cmm (157-399); Red Blood Count 4.94 10^6/uL (3.85-5.65); Red Cell Distribution Width 12.8 % (12.1-15.1); White Blood Count 6.92 10^3/uL (3.29-11.43)
[2023-04-29 10:45] VITALS: BP 152/110; PULSE 91; O2SAT 98
[2023-04-29 10:58] LABS: Alanine Aminotransferase 35 U/L (0-33); Alkaline Phosphatase 147 U/L (35-105); Anion Gap 11.2 (5-19); Aspartate Amino Transferase 23 U/L (0-32); Blood Urea Nitrogen 11 mg/dL (6-20); Calcium 9.1 mg/dL (8.5-10.5); Carbon Dioxide 30 mmol/L (22-29); Chloride 105 mmol/L (98-107); Globulin 2.3 g/dL (1.3-4.6); Glomerular Filtration Rate 104.2 mL/min (90-130); Glucose 174 mg/dL (65-115); Osmolality Calculated 298 mOsm/kg (285-295); Potassium 4.2 mmol/L (3.5-5.1); Sodium 142 mmol/L (136-145); Total Bilirubin 0.3 mg/dL (0.15-1.2); Total Protein 6.3 g/dL (6.6-8.7)
--- NOTE | 2023-04-29 11:17 | PC.NURSE ---
PT AMBULATED APPROX 75 FEET. PT GAIT WNL. PT DID NOT GET UNBALANCED DURING TRIAL.
[2023-04-29 11:35] VITALS: BP 157/109; PULSE 94; RESP 18; O2SAT 100
--- NOTE | 2023-04-29 11:41 | PC.PHAR ---
pt states she takes no medications -pt states she hasnt taken prescription medications for almost a year-discharge orders and meds in before being able to put no known medications
[2023-04-29 12:01] LABS: Amphetamines Screen Urine Positive (Negative); Barbiturates Screen Urine Negative (Negative); Benzodiazepines Screen Urine Negative (Negative); Cocaine Screen Urine Negative (Negative); Opiate Screen Urine Negative (Negative); PCP Screen Urine Negative (Negative); THC Screen Urine Negative (Negative)
[2023-04-29 12:03] LABS: Add Urine Culture? No; Add Urine Microscopic? YES; Bacteria Urine TRACE /hpf; Bilirubin Urine Neg (Negative); Blood Urine Neg (Negative); Glucose Urine UA Norm (Normal); Ketones Urine Negative (Negative); Leukocyte Esterase Urine 1+ (Negative); Mucus Urine 2+ /hpf; Nitrate Urine Negative (Negative); Protein Urine Neg (Negative); RBC Urine 0-4 /hpf (0-2); Specific Gravity, Urine 1.015 (1.005-1.030); Urine Appearance Clear (CLEAR); Urine Color Yellow (Yellow); Urobilinogen Urine Norm (Negative); pH Urine 5 (5-7)
[2023-04-29 12:16] VITALS: BP 153/100; PULSE 101; RESP 18; O2SAT 99
[2023-04-29 12:17] VITALS: BP 153/100; PULSE 101; RESP 18; O2SAT 99
--- NOTE | 2023-05-03 08:10 | DCPLANNER ---
relief manager had message to speak with patient about getting established with a primary care physician. relief manager called phone number [phone] - unable to speak with patient at this time, a voicemail was left for patient to return counter caser phone call.
== END 2023-04-29 12:20 | disposition home or self-care (01) ==
PROVIDERS: Emergency Provider Physician Assistant
DX: R42 Dizziness and giddiness (principal); F41.9 Anxiety disorder, unspecified; E11.9 Type 2 diabetes mellitus without complications; I10 Essential (primary) hypertension; F17.210 Nicotine dependence, cigarettes, uncomplicated; F17.290 Nicotine dependence, other tobacco product, uncomplicated
CPT/HCPCS: 36415; 80053; 80306; 81001; 85025; 93005; 96374; 99284; J2060; J8597